=== PATIENT | female | born 1985 | race African-American/Black ===

== ENCOUNTER 2019-02-11 20:01 | Emergency (ER) | payer MEDICAID, OTHER ==
[~2019-02-11] VITALS: Ht 170.2 cm; Wt 94.8 kg
[~2019-02-11 20:01] MED LIST: CIPR500T94 PO; DOCU-109 PO; Ibuprofen PO; NAPR-683 PO; OXYC1TAB15 PO; PHEN-318 PO; PREN-14 PO
[2019-02-11 21:15] VITALS: BP 114/55
--- NOTE | 2019-02-11 21:36 | RAD ---
Transvaginal obstetrical ultrasound 02/11/2019. Reason for exam: Left-sided pain. Vaginal bleeding. History of positive test. History of left side salpingectomy for ectopic . FINDINGS: Uterus is normal in size and shape. Endometrial thickness is mildly prominent at 12 mm. No gestational sac is seen in the uterus. There is no fluid in the endometrial cavity. Both ovaries are demonstrated and show internal blood flow. There is a cyst in the left ovary measuring about 2.5 cm. On the right side, there is a cyst with internal low level echoes measuring about 1.6 cm. No separate adnexal mass or free fluid is seen. IMPRESSION: No demonstrated . Findings are nonspecific. Possible causes include early too small to visualize, spontaneous , or ectopic . There are no secondary findings suggesting ectopic , however. Follow-up ultrasound in one week may be useful. Electronically signed by: Blake Singh Jr., MD (02/11/2019 9:33 PM) [facility]
--- NOTE | 2019-02-11 22:04 | PHYS DOC ---
Past Medical History Past Medical History: Asthma, Other Additional Past Medical Histor: SPONTANEOUS ABORTIONS Past Surgical History: , Other Additional Past Surgical Histo: FALLOPIAN TUBE REMOVAL Alcohol Use: None Drug Use: None Adult General Chief Complaint Chief Complaint: VAGINAL BLEEDING [facility] Patient is a 33 year old AA female who presents to the emergency department with complaints of spotting that occurred earlier today. Patient denies any vaginal bleeding or irregular vaginal discharge at this time. Patient states that she had a positive home test 2 days ago, she is 5, para 2 with a history of an ectopic and miscarriage previously. She states that since 1900 this evening she has felt left lower abdominal pain. She denies any dysuria, hematuria, increased urinary frequency, fever, cough, shortness of breath, vomiting, diarrhea, chest pain, dizziness, headache, chills, or palpitations. Patient states she has had nausea the last few days, she denies any vomiting. The patient's last menstrual cycle was on January 012018, she does not know her estimated due date is yet she has not seen her pediatric dental hygienist or primary care provider. All other ROS is neg unless otherwise noted in HPI. Review of Systems Review of Systems See Above Allergies Allergies Allergies Coded Allergies Type Severity Reaction Last Updated Verified Penicillins Allergy Intermediate Swelling 03/08/13 Yes Physical Exam Physical Exam See Above Constitutional: Well developed, well nourished, no acute distress, non-toxic appearance. [] HENT: Normocephalic, atraumatic, bilateral external ears normal, oropharynx moist, no oral exudates, nose normal. [] Eyes: PERRLA, EOMI, conjunctiva normal, no discharge. [] Neck: Normal range of motion, no stridor. [] Cardiovascular:Heart rate regular rhythm, no murmur [] Lungs & Thorax: Bilateral breath sounds clear to auscultation, Respirations even and unlabored, no retractions, no respiratory distress Abdomen: Bowel sounds normal, soft, LLQ tenderness, no masses, no pulsatile masses. [] Skin: Warm, dry, no erythema, no rash. [] Back: No CVA tenderness. [] Extremities: No cyanosis, ROM intact, no edema. [] Neurologic: Alert and oriented X 3, no focal deficits noted. [] Psychologic: Affect normal, judgement normal, mood normal. [] Current Patient Data Vital Signs Vital Signs Date Time Temp Pulse Resp B/P (MAP) Pulse Ox O2 Delivery O2 Flow Rate FiO2 02/11/19 21:15 82 18 114/55 (74) 98 Room Air 02/11/19 20:13 98.1 98.1 Lab Values Laboratory Tests Test 02/11/19 20:19 02/11/19 20:25 POC Urine HCG, Qualitative Hcg positive (Negative) Maternal Serum HCG Beta Subunit 54278 mIU/mL (0-5) H EKG EKG [] Radiology/Procedures Radiology/Procedures PROCEDURE: PREG 1ST TRIMESTER Transvaginal obstetrical ultrasound 02/11/2019. Reason for exam: Left-sided pain. Vaginal bleeding. History of positive test. History of left side salpingectomy for ectopic . FINDINGS: Uterus is normal in size and shape. Endometrial thickness is mildly prominent at 12 mm. No gestational sac is seen in the uterus. There is no fluid in the endometrial cavity. Both ovaries are demonstrated and show internal blood flow. There is a cyst in the left ovary measuring about 2.5 cm. On the right side, there is a cyst with internal low level echoes measuring about 1.6 cm. No separate adnexal mass or free fluid is seen. IMPRESSION: No demonstrated . Findings are nonspecific. Possible causes include early too small to visualize, spontaneous , or ectopic . There are no secondary findings suggesting ectopic , however. Follow-up ultrasound in one week may be useful. [] Course & Med Decision Making Course & Med Decision Making Pertinent Labs and Imaging studies reviewed. (See chart for details) Patient is a 33-year-old female who presented to the emergency room with complaints of lower left quadrant abdominal pain after having one episode of blood on the tissue with wiping earlier today. Patient reported concern because she took a test 2 days ago and found out it was positive. Patient is 5, para 2, with a history of a previous tubal and one miscarriage. Patient denies any irregular vaginal discharge, or current vaginal bleeding. Her hCG level is 12,930, patient's blood type is O+. Ultrasound revealed: No demonstrated . Findings are nonspecific. Possible causes include early too small to visualize, spontaneous , or ectopic . There are no secondary findings suggesting ectopic , however. Follow-up ultrasound in one week may be useful. She was encouraged follow-up with her primary care provider or Dr. Dias next week for repeat ultrasound and beta hCG level. Recommended pelvic rest until follow-up appointment. Patient verbalized an understanding of home care, medications, follow-up, and return to ED instructions and was in agreement with the plan of care. [] Dragon Disclaimer Dragon Disclaimer This electronic medical record was generated, in whole or in part, using a voice recognition dictation system. Departure Departure Impression: Primary Impression: Abdominal pain of left lower quadrant during , antepartum Referrals: THALIA LONGORIA MD (PCP) Patient Instructions: Abdominal Pain During , [id number] Additional Instructions: You HCG level today was [address]. There was no intrauterine or tubal on the ultrasound. You need to follow up with your OBGyn or Dr. Troy's office next week to have a repeat ultrasound and repeat HCG level. Pelvic rest until follow up appointment. Return to the ER if symptoms worsen. AMILCAR JUSTIN APRN Feb 11, 2019 22:04
== END 2019-02-11 22:15 | disposition home or self-care (01) ==
LOC: ER 20:01
DX: O26.891 Other specified pregnancy related conditions, first trimester (principal); R10.32 Left lower quadrant pain; O26.851 Spotting complicating pregnancy, first trimester; O99.511 Diseases of the respiratory system complicating pregnancy, first trimester; J45.909 Unspecified asthma, uncomplicated; Z88.0 Allergy status to penicillin; Z3A.00 Weeks of gestation of pregnancy not specified
CPT/HCPCS: 36415; 76801; 81025; 84702; 99285-25

== ENCOUNTER → 2019-02-20 | Outpatient (CLI) | payer MEDICAID ==
[~2019-02-20] VITALS: Ht 170.2 cm; Wt 95.3 kg
[~2019-02-20] MED LIST changes: +FERR325T14 PO; +IBUP-1060 PO; +METHOTREXATE SODIUM 50 MG/2 ML VIAL IM ONE
[2019-02-20 14:29] VITALS: BP 134/81
--- NOTE | 2019-02-20 15:24 | NUR ---
HALF THE DOSE GIVEN IN RIGHT DORSOGLUTEAL AND HALF GIVEN IN LEFT DORSOGLUTEAL.
== END | disposition home or self-care (01) ==
LOC: OPS 14:04
PROVIDERS: ATTEND Obstetrics & Gynecology
DX: O00.80 Other ectopic pregnancy without intrauterine pregnancy (principal); J45.909 Unspecified asthma, uncomplicated
CPT/HCPCS: 96372

== ENCOUNTER → 2019-02-20 | Outpatient (CLI) | payer MEDICAID ==
[2019-02-11 21:15] VITALS: BP 114/55
[~2019-02-20] MED LIST changes: -FERR325T14 PO; -IBUP-1060 PO; -METHOTREXATE SODIUM 50 MG/2 ML VIAL IM ONE
--- NOTE | 2019-02-20 12:43 | RAD ---
Examination: OB <14 WKS W/TV History: Abnormal OB ultrasound exam-02/11/2019 Comparison/Correlation: 02/11/2019 OB ultrasound Findings: Transabdominal and transvaginal OB ultrasound was performed. Transvaginal technique was utilized to better assess the adnexal structures. Myometrium is unremarkable. Endometrial thickness is 1.2 cm. Mild heterogeneity of the anterior myometrium noted. Right adnexal gestational sac is present containing a pole measuring 0.81 cm corresponding to 6 weeks 5 day gestation. heart rate is 130 beats minute. Complex right adnexal follicle measuring 1.2 cm diameter is present. Complex left adnexal follicle measuring 2.5 cm diameter is present. Minimal pelvic free fluid. Impression: Right adnexal live ectopic gestation. No intrauterine gestational sac. Complex bilateral ovarian follicles of indeterminate significance. Referring ER physician was informed on 01/24/2019 by the blood bank laboratory technologist performed the exam.. Electronically signed by: Hebert Nair MD (02/20/2019 12:40 PM) [facility]
== END | disposition home or self-care (01) ==
LOC: US 10:56
PROVIDERS: ATTEND Obstetrics & Gynecology
DX: O00.80 Other ectopic pregnancy without intrauterine pregnancy (principal); Z3A.00 Weeks of gestation of pregnancy not specified
CPT/HCPCS: 76801; 76817

== ENCOUNTER 2019-02-27 14:35 | Inpatient (IN) | payer MEDICAID ==
[~2019-02-27] VITALS: Ht 170.2 cm; Wt 95.3 kg
[~2019-02-27 14:35] MED LIST changes: -FERR325T14 PO; -IBUP-1060 PO
[2019-02-27] MEDS ORDERED: MORPHINE SULFATE 10 MG/ML VIAL. IV STA (15:42)
[2019-02-27] MEDS ORDERED: ONDANSETRON PF 4 MG/2 ML VIAL. IV ONE (15:45)
[2019-02-27] MEDS ORDERED: IV NORMAL SALINE 1000ML BAG 1,000 ML IV ONE (15:45)
--- NOTE | 2019-02-27 15:51 | RAD ---
Examination: OB <14 WKS W/TV History: Ectopic treated with methotrexate; abdominal pain has increased Comparison/Correlation: 02/11/2019 and 01/24/2019 first trimester ultrasound exam Findings: Transabdominal and transvaginal pelvic ultrasound exams were performed. Transvaginal technique was placed better assess the adnexal structures. Uterus measures 9.8 cm x 4.9 cm x 5.1 cm. Endometrial thickness of 1.6 cm is present. Myometrium is unremarkable. Small amount of pelvic free fluid is present. No intrauterine gestational sac. Right ovary measures 2.4 cm x 1.7 cm x 2.7 cm. Right adnexal gestational sac is present. pole is present with crown-rump length of 1.56 cm corresponding to 8 weeks 0 day. EDC of 10/08/2010. No heart rate detected. Normal ovarian flow bilaterally. Left ovary measures 3.2 cm x 2.8 cm x 3.2 cm. Left adnexal slightly complex 2.1 cm diameter follicle is present. Impression: Right adnexal ectopic gestation is present with no heart rate detected. Mildly complex left adnexal follicle which may be physiologic is slightly decreased in size. Electronically signed by: Hebert Nair MD (02/27/2019 3:48 PM) [facility]
--- NOTE | 2019-02-27 15:55 | PHYS DOC ---
Past Medical History Past Medical History: Asthma, Other Additional Past Medical Histor: SPONTANEOUS ABORTIONS Past Surgical History: , Other Additional Past Surgical Histo: FALLOPIAN TUBE REMOVAL Alcohol Use: None Drug Use: None Adult General Chief Complaint Chief Complaint: ABDOMINAL PAIN HPI HPI Patient is a 33 year old female who presents from her [facility], Dr. Osuna's office for abdominal pain. The patient was diagnosed with ectopic on February 20 and given methotrexate. Labs taken today at her [facility] office. Her Quant went from 24,569 to 15,443. She states that she is not having pain before been diagnosed the ectopic but then she received the methotrexate and did not pain to today when she started having increased pain. She rates her pain as 8 out of 10 in severity and sharp. Review of Systems Review of Systems Constitutional: Denies fever or chills [] Eyes: Denies change in visual acuity, redness, or eye pain [] HENT: Denies nasal congestion or sore throat [] Respiratory: Denies cough or shortness of breath [] Cardiovascular: No additional information not addressed in HPI [] GI: Reports abdominal pain, nausea, Denies vomiting, bloody stools or diarrhea [] : Denies dysuria or hematuria [] Musculoskeletal: Denies back pain or joint pain [] Integument: Denies rash or skin lesions [] Neurologic: Denies headache, focal weakness or sensory changes [] Complete systems were reviewed and found to be within normal limits, except as documented in this note. Current Medications Current Medications Current Medications Medications (Trade) Dose Ordered Sig/Rebeca Start Time Stop Time Status Last Admin Dose Admin Morphine Sulfate (Morphine Sulfate) 5 mg 1X STAT 02/27/19 15:42 02/27/19 15:47 DC Ondansetron HCl (Zofran) 4 mg 1X ONCE 02/27/19 15:45 02/27/19 15:46 DC Sodium Chloride 1,000 ml @ 1,000 mls/hr 1X ONCE 02/27/19 15:45 02/27/19 16:44 Allergies Allergies Allergies Coded Allergies Type Severity Reaction Last Updated Verified Penicillins Allergy Intermediate Swelling 03/08/13 Yes Physical Exam Physical Exam Constitutional: Well developed, well nourished, no acute distress, non-toxic appearance. [] HENT: Normocephalic, atraumatic, bilateral external ears normal, oropharynx cooper st, no oral exudates, nose normal. [] Eyes: PERRLA, EOMI, conjunctiva normal, no discharge. [] Neck: Normal range of motion, no tenderness, supple, no stridor. [] Cardiovascular:Heart rate regular rhythm, no murmur [] Lungs & Thorax: Bilateral breath sounds clear to auscultation [] Abdomen: Bowel sounds normal, soft, R lower abd tenderness., no masses, no pulsatile masses. [] Skin: Warm, dry, no erythema, no rash. [] Neurologic: Alert and oriented X 3, normal motor function, normal sensory function, no focal deficits noted. [] Psychologic: Affect normal, judgement normal, mood normal. [] EKG EKG [] Radiology/Procedures Radiology/Procedures [][facility] [address] [place] [address] IMAGING REPORT Signed PATIENT: KELECHI TRENT LACCOUNT: [id number] : 1985 LOCATION: ER AGE: 33 SEX: F EXAM STATUS: REG ER ORD. PHYSICIAN: THALIA MUKHERJEE APRN REASON: post methotrexate for ectopic , increased abdominal pain PROCEDURE: OB <14 WKS W/TV Examination: OB <14 WKS W/TV History: Ectopic treated with methotrexate; abdominal pain has increased Comparison/Correlation: 02/11/2019 and 01/24/2019 first trimester ultrasound exam Findings: Transabdominal and transvaginal pelvic ultrasound exams were performed. Transvaginal technique was placed better assess the adnexal structures. Uterus measures 9.8 cm x 4.9 cm x 5.1 cm. Endometrial thickness of 1.6 cm is present. Myometrium is unremarkable. Small amount of pelvic free fluid is present. No intrauterine gestational sac. Right ovary measures 2.4 cm x 1.7 cm x 2.7 cm. Right adnexal gestational sac is present. pole is present with crown-rump length of 1.56 cm corresponding to 8 weeks 0 day. EDC of 10/08/2010. No heart rate detected. Normal ovarian flow bilaterally. Left ovary measures 3.2 cm x 2.8 cm x 3.2 cm. Left adnexal slightly complex 2.1 cm diameter follicle is present. Impression: Right adnexal ectopic gestation is present with no heart rate detected. Mildly complex left adnexal follicle which may be physiologic is slightly decreased in size. Electronically signed by: Hebert Vargas MD (02/27/2019 3:48 PM) [facility] DICTATED and SIGNED BY: HEBERT VARGAS MD DATE: 02/27/19 1548 Course & Med Decision Making Course & Med Decision Making Pertinent Labs and Imaging studies reviewed. (See chart for details) Discussed case with Dr. Osuna who will admit to hospital. Will order supportive care. Dragon Disclaimer Dragon Disclaimer This electronic medical record was generated, in whole or in part, using a voice recognition dictation system. Departure Departure Impression: Primary Impression: Abdominal pain affecting Additional Impression: Ectopic Disposition: 09 ADMITTED INPATIENT (Dr. Osuna) Condition: STABLE Referrals: THALIA LONGORIA MD (PCP) Problem Qualifiers Additional Impression: Ectopic Location of ectopic : ovarian Intrauterine status: without intrauterine Laterality: right Qualified Codes: O00.201 - Right ovarian without intrauterine THALIA MUKHERJEE APRN Feb 27, 2019 15:55
[2019-02-27] MEDS ORDERED: fentaNYL PF VIAL 100 MCG/2 ML VIAL IV PRN (16:00)
[2019-02-27] MEDS ORDERED: ONDANSETRON PF 4 MG/2 ML VIAL. IV PRN (16:00)
[2019-02-27 17:00] VITALS: BP 141/69
[2019-02-27] MEDS: IV NORMAL SALINE 1000ML BAG 1,000 ML IV SCH (17:00)
--- NOTE | 2019-02-27 17:00 | NUR ---
Pt admitted to room 303 per bed from ER. Pt has complaints of abd pain on the right side that started today after eating some pizza. Pt has a recent diagnosis of right ectopic in which she received methotrexate in Dr. Osuna's office on 02-20-19. Pt oriented to room and POC, will notify Dr. Osuna of pts admission.
[2019-02-27] MEDS ORDERED: MORPHINE SULFATE 2 MG/ML VIAL. IV PRN (17:30)
[2019-02-27] MEDS ORDERED: oxyCODONE/APAP 5/325 1 TAB TABLET PO PRN (17:30)
--- NOTE | 2019-02-27 18:09 | PDOC1 ---
History and Physical Date of Admission Date of Admission DATE: 02/27/19 TIME: 18:05 History of Present Illness History of Present Illness Reason for admit: right ectopic s/p MTX, right sided abd pain HPI: 33y who originally presented to the ER on 02/11 with LLQ pain and positive test. Her LMP at that time was 01/01/19. She was found to have a quant of 12,930, but the reported that they could determine a location of the on u/s. The pt was informed at the visit that typically with a quant above 2,000, intrauterine contacts should be seen. The pt is aware that her quant is very high for nothing to be seen. The pt's of unknown location was w/u with a repeat quant. It returned at 13,132 on 02/13. Since the value was stable to only a slight increase the plan was to repeat the u/s a wk out from the original. The u/s on 02/20 revealed a right adnexal gestational sac containing a pole measuring 0.81 cm corresponding to 6 weeks 5 day gestation. heart rate is 130 beats minute. About 2yrs ago the pt was found to have an ectopic . She ultimately presented to the ER with a ruptured ectopic. She had a L/S left partial salpi ngectomy with ectopic removal and adhesion release. Discussed the tx options of medical vs surgical management. Explained that with cardiac activity, a quant >6,500, and a mass >3.5 cm that there was a high chance that MTX would not succeed (32%). The pt understood but she had a strong desire to preserve her remaining tube. The pt was tx with MTX on 02/20. When she followed up in the office on 02/23/19 she was asx and was without pain or cramping. She has noticed some spotting. When she returned to t he office today (02/27/19), the pt presented in to the front end specialist in tears from the sharp pain she was having on her right. She had felt well earlier in the day. Her day #8 quant was drawn around noon. The pt's quant dropped from 24,569 (day #4) to 15,443 (day #8). This was about a 37% drop (more than the desired 15%). Due to the pt pain she was sent to the ER for a stat u/s. The u/s revealed the right adnexal ectopic gestation with no heart rate detected. The infectious waste technician said that she did not see any free fluid on the exam. 12,930 (02/11) -> 13,132 (02/13) -> 17,797 (02/16) -> 24,101 (02/20) -> 24,569 (02/23) -> 15,443 (02/27). 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 Past Surgical History Past Surgical History: Current Problem List Problem List Problems Medical Problems: (1) Abdominal pain affecting Status: Acute (2) Ectopic Status: Acute Current Medications Current Medications Current Medications Ondansetron HCl (Zofran) 4 mg 1X ONCE IV Last administered on 02/27/19at 16:12; Start 02/27/19 at 15:45; Stop 02/27/19 at 15:46; Status DC Sodium Chloride 1,000 ml @ 1,000 mls/hr 1X ONCE IV Last administered on 02/27/19at 16:12; Start 02/27/19 at 15:45; Stop 02/27/19 at 16:44; Status DC Morphine Sulfate (Morphine Sulfate) 5 mg 1X STAT IV Last administered on 02/27/19at 16:11; Start 02/27/19 at 15:42; Stop 02/27/19 at 15:47; Status DC Ondansetron HCl (Zofran) 4 mg PRN Q8HRS PRN IV NAUSEA/VOMITING; Start 02/27/19 at 16:00; Stop 02/28/19 at 15:59 Fentanyl Citrate (Fentanyl 2ml Vial) 50 mcg PRN Q1HR PRN IV PAIN; Start 02/27/19 at 16:00; Stop 02/28/19 at 15:59 Sodium Chloride 1,000 ml @ 100 mls/hr Q10H IV ; Start 02/27/19 at 18:00 Ibuprofen (Motrin) 800 mg PRN Q8HRS PRN PO INFLAMMATION; Start 02/27/19 at 17:30 Morphine Sulfate (Morphine Sulfate) 1 mg PRN Q1HR PRN IV PAIN; Start 02/27/19 at 17:30 Oxycodone/ Acetaminophen (Percocet 5/325) 1 tab PRN Q6HRS PRN PO PAIN; Start 02/27/19 at 17:30 Morphine Sulfate (Morphine Sulfate) 2 mg PRN Q1HR PRN IV PAIN; Start 02/27/19 at 17:45 Oxycodone/ Acetaminophen (Percocet 5/325) 2 tab PRN Q6HRS PRN PO PAIN; Start 02/27/19 at 17:45 Active Scripts Active Reported No Known Medications Prior To Admisstion (Info) Each 1 Each DAILY Allergies Allergies: Coded Allergies: Penicillins (Verified Allergy, Intermediate, Swelling, 03/08/13) Physical Exam General: Alert, Oriented X3, Cooperative, No acute distress HEENT: PERRLA Lungs: Clear to auscultation, Normal air movement Heart: RRR Breasts: Nipples normal Abdomen: Normal bowel sounds, Soft, No hepatosplenomegaly, No masses, Other (tender in RLQ) Extremities: No clubbing, No cyanosis, No edema, Normal pulses, No tenderness/swelling Skin: No rashes, No breakdown, No significant lesion Neuro: Normal gait, Normal speech, Strength at 5/5 X4 ext, Normal tone, Sensation intact, Cranial nerves 3-12 NL, Reflexes 2+ Psych/Mental Status: Mental status NL, Mood NL Vitals Vitals Vital Signs Date Time Temp Pulse Resp B/P (MAP) Pulse Ox O2 Delivery O2 Flow Rate FiO2 02/27/19 17:00 99.0 82 20 141/69 (93) 99 Room Air 99.0 VTE Prophylaxis Ordered VTE Prophylaxis Devices: No VTE Pharmacological Prophylaxi: No Assessment/Plan Assessment/Plan A/P 33y with right ectopic 1.) RLQ pain ddx ruptured ectopic vs pain 2/2 MTX, Mild to moderate abdominal pain of short duration (one to two days) at six to seven days after receiving the MTX is common. The pain may be due to tubal or tubal distention from hematoma formation and can usually be controlled with acetaminophen, due to the pts severe pain a u/s was performed. No hemoperitoneum observed. Due to her severe pain we will admit her for close observation to make sure she remains hemodynamic stable. Hgb 11.1 (previously 11.0 on 02/20) 2.) Right ectopic - s/p MTX on 02/20, baseline labs (Hgb, Plt, Cr, LFTs) all nml, and repeat labs remained nml, 37% decrease b/t day #4 and day #8, pt with new onset right sided pain 3.) cHTN - mild range BP's 4.) H/o C/S x 2 5.) H/o ectopic - h/o L/S left partial salpingectomy 6.) PCN All 7.) Asthma 8.) Contraception - none 9.) Blood type - O pos THALIA PAZ MD Feb 27, 2019 18:09
[2019-02-27] MEDS: IBUPROFEN 400 MG TABLET. PO PRN (18:46)
[2019-02-27 19:36] VITALS: BP 121/64
[2019-02-27] MEDS: MORPHINE SULFATE 2 MG/ML VIAL. IV PRN ×2 (21:12→23:36)
[2019-02-27 22:28] VITALS: BP 125/75
[2019-02-28] VITALS (12 sets, daily range): BP systolic 88–126; BP diastolic 40–83
[2019-02-28] MEDS: IV NORMAL SALINE 1000ML BAG 1,000 ML IV SCH ×3 (00:38→23:07)
[2019-02-28] MEDS: oxyCODONE/APAP 5/325 1 TAB TABLET PO PRN ×3 (00:39→23:11)
[2019-02-28] MEDS: MORPHINE SULFATE 2 MG/ML VIAL. IV PRN ×8 (00:40→23:11)
[2019-02-28 05:08] LABS: BASO % 0 % (0-3); EOS % 1 % (0-3); HEMATOCRIT 31.9 % (36.0-47.0); HEMOGLOBIN 10.6 g/dL (12.0-15.5); LYMPH # 1.4 x10^3/uL (1.0-4.8); LYMPH % 19 % (24-48); MEAN CORPUSCULAR HEMOGLOBIN 28 pg (25-35); MEAN CORPUSCULAR HGB CONC 33 g/dL (31-37); MEAN CORPUSCULAR VOLUME 83 fL (79-100); MONO # 0.4 x10^3/uL (0.0-1.1); MONO % 5 % (0-9); NEUT # 5.8 x10^3/uL (1.8-7.7); NEUT % 75 % (31-73); PLATELET COUNT 281 x10^3/uL (140-400); RED BLOOD COUNT 3.84 x10^6/uL (3.50-5.40); RED CELL DISTRIBUTION WIDTH 15.3 % (11.5-14.5); WHITE BLOOD COUNT 7.7 x10^3/uL (4.0-11.0)
[2019-02-28] MEDS: IBUPROFEN 400 MG TABLET. PO PRN (06:02)
--- NOTE | 2019-02-28 10:19 | PDOC ---
PROGRESS NOTES Subjective Subjective The pt had episodes of severe pain throughout the night. This am she felt bloated. This was similar to the feeling she had with her last ectopic. Reviewed the pts labs with her. Objective Objective Vital Signs Date Time Temp Pulse Resp B/P (MAP) Pulse Ox O2 Delivery O2 Flow Rate FiO2 02/28/19 09:41 18 Room Air 02/28/19 07:45 98.2 97 124/79 (94) 97 98.2 Intake and Output 02/28/19 07:00 Output Total 100 ml Balance -100 ml Output Urine Total 100 ml # Voids 2 Physical Exam Physical Exam CTAB RRR S/diffuse tender, no rebound or guarding/ND No C/C/E Assessment Assessment Problems Medical Problems: (1) Abdominal pain affecting Status: Acute (2) Ectopic Status: Acute A/P 33y with right ectopic , hospital day #2 1.) RLQ pain ddx ruptured ectopic vs pain 2/2 MTX, vital signs remain stable, u/s with only minimal free fluid, Hgb11.0 -> 10.6, will repeat this afternoon, if stable may allow pt to eat 2.) Right ectopic - s/p MTX on 02/20, baseline labs (Hgb, Plt, Cr, L FTs) all nml, and repeat labs remained nml, 37% decrease b/t day #4 and day #8, 15,443 (1/) -> 6,604 (today), pt with new onset right sided pain 3.) cHTN nml to mild range BP's 4.) H/o C/S x 2 5.) H/o ectopic - h/o L/S left partial salpingectomy 6.) PCN All 7.) Asthma 8.) Contraception - none 9.) Blood type - O pos Comment Review of Relevant I have reviewed the following items alem (where applicable) has been applied. Labs Laboratory Tests Test 02/28/19 04:50 White Blood Count 7.7 x10^3/uL (4.0-11.0) Red Blood Count 3.84 x10^6/uL (3.50-5.40) Hemoglobin 10.6 g/dL (12.0-15.5) Hematocrit 31.9 % (36.0-47.0) Mean Corpuscular Volume 83 fL (79-100) Mean Corpuscular Hemoglobin 28 pg (25-35) Mean Corpuscular Hemoglobin Concent 33 g/dL (31-37) Red Cell Distribution Width 15.3 % (11.5-14.5) Platelet Count 281 x10^3/uL (140-400) Neutrophils (%) (Auto) 75 % (31-73) Lymphocytes (%) (Auto) 19 % (24-48) Monocytes (%) (Auto) 5 % (0-9) Eosinophils (%) (Auto) 1 % (0-3) Basophils (%) (Auto) 0 % (0-3) Neutrophils # (Auto) 5.8 x10^3/uL (1.8-7.7) Lymphocytes # (Auto) 1.4 x10^3/uL (1.0-4.8) Monocytes # (Auto) 0.4 x10^3/uL (0.0-1.1) Eosinophils # (Auto) 0.0 x10^3/uL (0.0-0.7) Basophils # (Auto) 0.0 x10^3/uL (0.0-0.2) Maternal Serum HCG Beta Subunit 6604 mIU/mL (0-5) Laboratory Tests Test 02/28/19 04:50 White Blood Count 7.7 x10^3/uL (4.0-11.0) Red Blood Count 3.84 x10^6/uL (3.50-5.40) Hemoglobin 10.6 g/dL (12.0-15.5) Hematocrit 31.9 % (36.0-47.0) Mean Corpuscular Volume 83 fL (79-100) Mean Corpuscular Hemoglobin 28 pg (25-35) Mean Corpuscular Hemoglobin Concent 33 g/dL (31-37) Red Cell Distribution Width 15.3 % (11.5-14.5) Platelet Count 281 x10^3/uL (140-400) Neutrophils (%) (Auto) 75 % (31-73) Lymphocytes (%) (Auto) 19 % (24-48) Monocytes (%) (Auto) 5 % (0-9) Eosinophils (%) (Auto) 1 % (0-3) Basophils (%) (Auto) 0 % (0-3) Neutrophils # (Auto) 5.8 x10^3/uL (1.8-7.7) Lymphocytes # (Auto) 1.4 x10^3/uL (1.0-4.8) Monocytes # (Auto) 0.4 x10^3/uL (0.0-1.1) Eosinophils # (Auto) 0.0 x10^3/uL (0.0-0.7) Basophils # (Auto) 0.0 x10^3/uL (0.0-0.2) Maternal Serum HCG Beta Subunit 6604 mIU/mL (0-5) Medications Current Medications Ondansetron HCl (Zofran) 4 mg 1X ONCE IV Last administered on 02/27/19at 16:12; Start 02/27/19 at 15:45; Stop 02/27/19 at 15:46; Status DC Sodium Chloride 1,000 ml @ 1,000 mls/hr 1X ONCE IV Last administered on 02/27/19at 16:12; Start 02/27/19 at 15:45; Stop 02/27/19 at 16:44; Status DC Morphine Sulfate (Morphine Sulfate) 5 mg 1X STAT IV Last administered on 02/27/19at 16:11; Start 02/27/19 at 15:42; Stop 02/27/19 at 15:47; Status DC Ondansetron HCl (Zofran) 4 mg PRN Q8HRS PRN IV NAUSEA/VOMITING Last administered on 02/27/19at 22:35; Start 02/27/19 at 16:00; Stop 02/28/19 at 15:59 Fentanyl Citrate (Fentanyl 2ml Vial) 50 mcg PRN Q1HR PRN IV PAIN; Start 02/27/19 at 16:00; Stop 02/28/19 at 15:59 Sodium Chloride 1,000 ml @ 100 mls/hr Q10H IV Last administered on 02/28/19at 00:38; Start 02/27/19 at 18:00 Ibuprofen (Motrin) 800 mg PRN Q8HRS PRN PO INFLAMMATION Last administered on 02/28/19at 06:02; Start 02/27/19 at 17:30 Morphine Sulfate (Morphine Sulfate) 1 mg PRN Q1HR PRN IV PAIN; Start 02/27/19 at 17:30 Oxycodone/ Acetaminophen (Percocet 5/325) 1 tab PRN Q6HRS PRN PO PAIN Last administered on 02/27/19at 22:35; Start 02/27/19 at 17:30 Morphine Sulfate (Morphine Sulfate) 2 mg PRN Q1HR PRN IV PAIN Last administered on 02/28/19at 09:41; Start 02/27/19 at 17:45 Oxycodone/ Acetaminophen (Percocet 5/325) 2 tab PRN Q6HRS PRN PO PAIN Last administered on 02/28/19at 06:31; Start 02/27/19 at 17:45 Active Scripts Active Reported No Known Medications Prior To Admisstion (Info) Each 1 Each DAILY Vitals/I & O Vital Sign - Last 24 Hours 02/27/19 02/27/19 02/27/19 02/27/19 15:32 16:51 17:00 19:36 Temp 98.6 99.0 98.8 98.6 99.0 98.8 Pulse 72 84 82 82 Resp 18 16 20 16 B/P (MAP) 141/65 (90) 149/73 (98) 141/69 (93) 121/64 (83) Pulse Ox 98 97 99 97 O2 Delivery Room Air Room Air Room Air Room Air 02/27/19 02/27/19 02/27/19 02/27/19 19:38 21:12 22:00 22:28 Temp 98.3 98.3 Pulse 76 Resp 16 16 16 B/P (MAP) 125/75 (92) Pulse Ox 97 99 O2 Delivery Room Air Room Air Room Air Room Air 02/27/19 02/27/19 02/27/19 02/28/19 22:35 23:35 23:36 00:24 Pulse 80 Resp 16 16 B/P (MAP) 124/72 (89) Pulse Ox 99 O2 Delivery Room Air Room Air Room Air 02/28/19 02/28/19 02/28/19 02/28/19 00:25 00:39 00:40 01:30 Resp 16 16 Pulse Ox 99 O2 Delivery Room Air Room Air Room Air 02/28/19 02/28/19 02/28/19 02/28/19 01:30 02:52 02:56 05:03 Temp 99.0 99.0 Pulse 76 Resp 16 16 B/P (MAP) 109/55 (73) Pulse Ox 99 96 O2 Delivery Room Air Room Air Room Air Room Air 02/28/19 02/28/19 02/28/19 02/28/19 05:33 06:03 06:31 07:45 Temp 98.2 98.2 Pulse 97 Resp 16 16 18 B/P (MAP) 124/79 (94) Pulse Ox 96 96 97 O2 Delivery Room Air Room Air Room Air Room Air 02/28/19 02/28/19 07:49 09:41 Resp 18 18 O2 Delivery Room Air Room Air Intake and Output 02/27/19 02/27/19 02/28/19 15:00 23:00 07:00 Output Total 100 ml Balance -100 ml THALIA PAZ MD Feb 28, 2019 10:19
[2019-02-28 12:04] LABS: HEMATOCRIT 24.8 % (36.0-47.0); HEMOGLOBIN 8.1 g/dL (12.0-15.5)
--- NOTE | 2019-02-28 13:07 | PDOC ---
PROGRESS NOTES Subjective Subjective CTSP after H/H results. Pt with a 2gm drop in Hgb from this morning. Pt states that she feels well. Discussed options of proceeding to surgery at this time vs more conservative measures like repeat u/s and labs. Since the pt feels better than yesterday she would like to proceed in a conservative manner. Objective Objective Vital Signs Date Time Temp Pulse Resp B/P (MAP) Pulse Ox O2 Delivery O2 Flow Rate FiO2 02/28/19 12:30 98.9 80 18 105/54 (71) 100 Room Air 98.9 Intake and Output 02/28/19 07:00 Output Total 100 ml Balance -100 ml Output Urine Total 100 ml # Voids 2 Assessment Assessment Problems Medical Problems: (1) Abdominal pain affecting Status: Acute (2) Ectopic Status: Acute A/P 33y with right ectopic , hospital day #2 1.) RLQ pain ddx ruptured ectopic vs pain 2/2 MTX, vital signs remain stable, Hgb11.0 -> 10.6 -> 8.1, with this drop will repeat u/s to check for free fluid, repeat CBC at 1600, will keep NPO at this time 2.) Right ectopic - s/p MTX on 12, baseline labs (Hgb, Plt, Cr, L FTs) all nml, and repeat labs remained nml, 37% decrease b/t day #4 and day #8, 15,443 (1/6) -> 6,604 (today), pt with new onset right sided pain 3.) cHTN nml to mild range BP's, BP's have slightly lowered over the course of the hospitalization, but pulse has remained nml 4.) H/o C/S x 2 5.) H/o ectopic - h/o L/S left partial salpingectomy 6.) PCN All 7.) Asthma 8.) Contraception - none 9.) Blood type - O pos Comment Review of Relevant I have reviewed the following items alem (where applicable) has been applied. Labs Laboratory Tests Test 02/28/19 04:50 02/28/19 11:55 White Blood Count 7.7 x10^3/uL (4.0-11.0) Red Blood Count 3.84 x10^6/uL (3.50-5.40) Hemoglobin 10.6 g/dL (12.0-15.5) 8.1 g/dL (12.0-15.5) Hematocrit 31.9 % (36.0-47.0) 24.8 % (36.0-47.0) Mean Corpuscular Volume 83 fL (79-100) Mean Corpuscular Hemoglobin 28 pg (25-35) Mean Corpuscular Hemoglobin Concent 33 g/dL (31-37) 33 g/dL (31-37) Red Cell Distribution Width 15.3 % (11.5-14.5) Platelet Count 281 x10^3/uL (140-400) Neutrophils (%) (Auto) 75 % (31-73) Lymphocytes (%) (Auto) 19 % (24-48) Monocytes (%) (Auto) 5 % (0-9) Eosinophils (%) (Auto) 1 % (0-3) Basophils (%) (Auto) 0 % (0-3) Neutrophils # (Auto) 5.8 x10^3/uL (1.8-7.7) Lymphocytes # (Auto) 1.4 x10^3/uL (1.0-4.8) Monocytes # (Auto) 0.4 x10^3/uL (0.0-1.1) Eosinophils # (Auto) 0.0 x10^3/uL (0.0-0.7) Basophils # (Auto) 0.0 x10^3/uL (0.0-0.2) Maternal Serum HCG Beta Subunit 6604 mIU/mL (0-5) Laboratory Tests Test 02/28/19 04:50 02/28/19 11:55 White Blood Count 7.7 x10^3/uL (4.0-11.0) Red Blood Count 3.84 x10^6/uL (3.50-5.40) Hemoglobin 10.6 g/dL (12.0-15.5) 8.1 g/dL (12.0-15.5) Hematocrit 31.9 % (36.0-47.0) 24.8 % (36.0-47.0) Mean Corpuscular Volume 83 fL (79-100) Mean Corpuscular Hemoglobin 28 pg (25-35) Mean Corpuscular Hemoglobin Concent 33 g/dL (31-37) 33 g/dL (31-37) Red Cell Distribution Width 15.3 % (11.5-14.5) Platelet Count 281 x10^3/uL (140-400) Neutrophils (%) (Auto) 75 % (31-73) Lymphocytes (%) (Auto) 19 % (24-48) Monocytes (%) (Auto) 5 % (0-9) Eosinophils (%) (Auto) 1 % (0-3) Basophils (%) (Auto) 0 % (0-3) Neutrophils # (Auto) 5.8 x10^3/uL (1.8-7.7) Lymphocytes # (Auto) 1.4 x10^3/uL (1.0-4.8) Monocytes # (Auto) 0.4 x10^3/uL (0.0-1.1) Eosinophils # (Auto) 0.0 x10^3/uL (0.0-0.7) Basophils # (Auto) 0.0 x10^3/uL (0.0-0.2) Maternal Serum HCG Beta Subunit 6604 mIU/mL (0-5) Medications Current Medications Ondansetron HCl (Zofran) 4 mg 1X ONCE IV Last administered on 02/27/19at 16:12; Start 02/27/19 at 15:45; Stop 02/27/19 at 15:46; Status DC Sodium Chloride 1,000 ml @ 1,000 mls/hr 1X ONCE IV Last administered on 02/27/19at 16:12; Start 02/27/19 at 15:45; Stop 02/27/19 at 16:44; Status DC Morphine Sulfate (Morphine Sulfate) 5 mg 1X STAT IV Last administered on 02/27/19at 16:11; Start 02/27/19 at 15:42; Stop 02/27/19 at 15:47; Status DC Ondansetron HCl (Zofran) 4 mg PRN Q8HRS PRN IV NAUSEA/VOMITING Last administered on 02/27/19at 22:35; Start 02/27/19 at 16:00; Stop 02/28/19 at 15:59 Fentanyl Citrate (Fentanyl 2ml Vial) 50 mcg PRN Q1HR PRN IV PAIN; Start 02/27/19 at 16:00; Stop 02/28/19 at 15:59 Sodium Chloride 1,000 ml @ 100 mls/hr Q10H IV Last administered on 02/28/19at 12:20; Start 02/27/19 at 18:00 Ibuprofen (Motrin) 800 mg PRN Q8HRS PRN PO INFLAMMATION Last administered on 02/28/19at 06:02; Start 02/27/19 at 17:30 Morphine Sulfate (Morphine Sulfate) 1 mg PRN Q1HR PRN IV PAIN; Start 02/27/19 at 17:30 Oxycodone/ Acetaminophen (Percocet 5/325) 1 tab PRN Q6HRS PRN PO PAIN Last administered on 02/27/19at 22:35; Start 02/27/19 at 17:30 Morphine Sulfate (Morphine Sulfate) 2 mg PRN Q1HR PRN IV PAIN Last administered on 02/28/19at 09:41; Start 02/27/19 at 17:45 Oxycodone/ Acetaminophen (Percocet 5/325) 2 tab PRN Q6HRS PRN PO PAIN Last administered on 02/28/19at 06:31; Start 02/27/19 at 17:45 Active Scripts Active Reported No Known Medications Prior To Admisstion (Info) Each 1 Each DAILY Vitals/I & O Vital Sign - Last 24 Hours 02/27/19 02/27/19 02/27/19 02/27/19 15:32 16:51 17:00 19:36 Temp 98.6 99.0 98.8 98.6 99.0 98.8 Pulse 72 84 82 82 Resp 18 16 20 16 B/P (MAP) 141/65 (90) 149/73 (98) 141/69 (93) 121/64 (83) Pulse Ox 98 97 99 97 O2 Delivery Room Air Room Air Room Air Room Air 02/27/19 02/27/19 02/27/19 02/27/19 19:38 21:12 22:00 22:28 Temp 98.3 98.3 Pulse 76 Resp 16 16 16 B/P (MAP) 125/75 (92) Pulse Ox 97 99 O2 Delivery Room Air Room Air Room Air Room Air 02/27/19 02/27/19 02/27/19 02/28/19 22:35 23:35 23:36 00:24 Pulse 80 Resp 16 16 B/P (MAP) 124/72 (89) Pulse Ox 99 O2 Delivery Room Air Room Air Room Air 02/28/19 02/28/19 02/28/19 02/28/19 00:25 00:39 00:40 01:30 Resp 16 16 Pulse Ox 99 O2 Delivery Room Air Room Air Room Air 02/28/19 02/28/19 02/28/19 02/28/19 01:30 02:52 02:56 05:03 Temp 99.0 99.0 Pulse 76 Resp 16 16 B/P (MAP) 109/55 (73) Pulse Ox 99 96 O2 Delivery Room Air Room Air Room Air Room Air 02/28/19 02/28/19 02/28/19 02/28/19 05:33 06:03 06:31 07:45 Temp 98.2 98.2 Pulse 97 Resp 16 16 18 B/P (MAP) 124/79 (94) Pulse Ox 96 96 97 O2 Delivery Room Air Room Air Room Air Room Air 02/28/19 02/28/19 02/28/19 07:49 09:41 12:30 Temp 98.9 98.9 Pulse 80 Resp 18 18 18 B/P (MAP) 105/54 (71) Pulse Ox 100 O2 Delivery Room Air Room Air Room Air Intake and Output 02/27/19 02/27/19 02/28/19 15:00 23:00 07:00 Output Total 100 ml Balance -100 ml THALIA PAZ MD Feb 28, 2019 13:06
--- NOTE | 2019-02-28 15:13 | RAD ---
Study: OB <14 WKS W/TV DATE: 02/28/2019 1:00 PM INDICATION: Possible ruptured ectopic. Hemoglobin decrease. COMPARISON: 02/27/2019. TECHNIQUE: Transabdominal ultrasonography of the pelvis was performed. Color Doppler and duplex were utilized as appropriate. FINDINGS: Redemonstrated right adnexal ectopic gestation without heart tones. A pole is again noted with a measured crown-rump length on today's study at 1.63 cm. Interval increase in volume of complex fluid within the pelvic cul-de-sac compatible with hemorrhage. Avascular thickening of the endometrium is redemonstrated measuring 1.2 cm on the current exam compared to 1.6 cm previously. The uterus itself measures 10 x 6 x 6 cm. The left ovary is not well visualized on this study. IMPRESSION: Progression in volume of blood products seen within the pelvic cul-de-sac most compatible with rupture of the previously diagnosed right adnexal ectopic gestation. As before, no heart tones are detected. FOR INTERNAL CODING PURPOSES RESULT CODE: (C) The significant findings were discussed with Dr. Osuna by telephone on 02/28/2019 at 1510 hours. Electronically signed by: LUCILA SHAVER MD (02/28/2019 3:11 PM) [facility] [place]
[2019-02-28] MEDS ORDERED: IV RINGERS,LACTATED 1000ML 1,000 ML IV SCH (15:27)
[2019-02-28] MEDS ORDERED: PROCHLORPERAZINE 10 MG/2 ML VIAL. IV PRN (15:30)
[2019-02-28] MEDS ORDERED: HYDROmorphone 2 MG/ML VIAL IV PRN (15:30)
[2019-02-28] MEDS ORDERED: fentaNYL PF VIAL 100 MCG/2 ML VIAL IV PRN ×2 (15:30)
[2019-02-28] MEDS ORDERED: MORPHINE SULFATE 2 MG/ML VIAL. IV PRN (15:30)
[2019-02-28] MEDS ORDERED: ONDANSETRON PF 4 MG/2 ML VIAL. IV PRN (15:30)
[2019-02-28] MEDS ORDERED: DEXAMETHASONE SOD PHOS 4 MG/ML VIAL ONE (15:36)
[2019-02-28] MEDS ORDERED: PROPOFOL 20 ML IV ONE (15:36)
[2019-02-28] MEDS ORDERED: ONDANSETRON PF 4 MG/2 ML VIAL. ONE (15:36)
[2019-02-28] MEDS ORDERED: LIDOCAINE 2% PF 5 ML VIAL. ONE (15:37)
[2019-02-28] MEDS ORDERED: MIDAZOLAM HCL/PF 2 MG/2 ML VIAL. ONE (15:37)
[2019-02-28] MEDS ORDERED: ROCURONIUM 50 MG/5 ML VIAL. ONE (15:37)
[2019-02-28] MEDS ORDERED: SUCCINYLCHOLINE 200 MG/10 ML VIAL. ONE (15:37)
[2019-02-28] MEDS ORDERED: fentaNYL PF VIAL 100 MCG/2 ML VIAL ONE ×4 (15:38→18:17)
[2019-02-28] MEDS ORDERED: BUPIVACAINE-EPI 0.25%-1:200000 MPF 30 ML VIAL. ONE (15:41)
[2019-02-28] MEDS ORDERED: ALBUTEROL SULFATE 2.5 MG/3 ML NEBU. NEB ONE (16:00)
[2019-02-28 16:06] LABS: HEMATOCRIT 25.3 % (36.0-47.0); HEMOGLOBIN 8.3 g/dL (12.0-15.5); RED BLOOD COUNT 3.04 x10^6/uL (3.50-5.40); RED CELL DISTRIBUTION WIDTH 15.2 % (11.5-14.5); WHITE BLOOD COUNT 9.2 x10^3/uL (4.0-11.0)
[2019-02-28] MEDS ORDERED: fentaNYL PF VIAL 100 MCG/2 ML VIAL IVP ONE (16:15)
[2019-02-28] MEDS ORDERED: FAMOTIDINE 20 MG/2 ML VIAL ONE (16:26)
[2019-02-28] MEDS ORDERED: PHENYLEPHRINE in 0.9% NACL PF 1 MG/10 ML SYRINGE. IV ONE (16:58)
[2019-02-28] MEDS ORDERED: GLYCOPYRROLATE 1 MG/5 ML VIAL. ONE (17:14)
[2019-02-28] MEDS ORDERED: NEOSTIGMINE METHYLSULFATE 5 MG/5 ML SYRINGE. ONE (17:14)
[2019-02-28] MEDS ORDERED: PROCHLORPERAZINE 10 MG/2 ML VIAL. ONE ×2 (17:31→18:22)
[2019-02-28] MEDS ORDERED: SEVOFLURANE 61 TO 120 MINUTES. IH ONE (17:54)
[2019-02-28] MEDS ORDERED: IV NORMAL SALINE 1000ML BAG 1,000 ML IV SCH (18:07)
[2019-02-28] MEDS ORDERED: DEXTROSE 50% 25 GM / 50ML DISP.SYRIN. IV PRN (18:15)
[2019-02-28] MEDS ORDERED: oxyCODONE/APAP 5/325 1 TAB TABLET PO PRN ×2 (18:15)
[2019-02-28] MEDS ORDERED: NALOXONE 0.4 MG/ML VIAL. IV PRN (18:15)
[2019-02-28] MEDS ORDERED: 0.9 % SODIUM CHLORIDE 10 ML DISP.SYRIN. IV PRN (18:15)
[2019-02-28] MEDS ORDERED: IV DEXTROSE 5% 250 ML BAG. IV PRN (18:15)
--- NOTE | 2019-02-28 18:23 | PDOC4 ---
OPERATIVE NOTE: PreOp Dx: 1.) Right ruptured ectopic 2.) Drop in Hgb, increased free fluid on u/s 3.) cHTN nml to mild range BP's, BP's have slightly lowered over the course of the hospitalization, but pulse has remained nml 4.) H/o C/S x 2 5.) H/o ectopic - h/o L/S left partial salpingectomy 6.) PCN All 7.) Asthma PostOp Dx: same Procedure: L/S right salpingectomy Surgeon: Fransisca Paz Anesteshia: GETA EBL: 100cc (1L of blood in belly) Fluids: 1300 cc UOP: 50cc Findings: right ruptured ectopic , small omental adhesion above right tube Complications: None THALIA PAZ MD Feb 28, 2019 18:22
[2019-03-01] VITALS (10 sets, daily range): BP systolic 93–112; BP diastolic 43–64
[2019-03-01 05:08] LABS: RED BLOOD COUNT 2.32 x10^6/uL (3.50-5.40); RED CELL DISTRIBUTION WIDTH 15.2 % (11.5-14.5); WHITE BLOOD COUNT 8.8 x10^3/uL (4.0-11.0)
[2019-03-01 05:11] LABS: HEMATOCRIT 19.4 % (36.0-47.0); HEMOGLOBIN 6.4 g/dL (12.0-15.5)
[2019-03-01] MEDS: MORPHINE SULFATE 2 MG/ML VIAL. IV PRN (05:35)
[2019-03-01] MEDS: IV NORMAL SALINE 1000ML BAG 1,000 ML IV SCH ×2 (08:02→22:38)
[2019-03-01] MEDS: oxyCODONE/APAP 5/325 1 TAB TABLET PO PRN (09:01)
--- NOTE | 2019-03-01 09:46 | PDOC ---
PROGRESS NOTES Subjective Subjective Pt has some abd pain this am. The pain is mostly located in the midline of the lower quad. The pt has never received a transfusion before and has questions regarding the transfusion and the surgery. Objective Objective Vital Signs Date Time Temp Pulse Resp B/P (MAP) Pulse Ox O2 Delivery O2 Flow Rate FiO2 03/01/19 09:01 Room Air 03/01/19 07:30 97.7 99 20 107/53 (71) 100 97.7 Intake and Output 03/01/19 07:00 Intake Total 2550 ml Output Total 600 ml Balance 1950 ml Intake Oral 750 ml IV Total 1800 ml Output Urine Total 500 ml Estimated Blood Loss 100 ml # Voids 1 Physical Exam Physical Exam CTAB RRR S/tender in lower midline no C/C/E Assessment Assessment Problems Medical Problems: (1) Abdominal pain affecting Status: Acute (2) Ectopic Status: Acute A/P 33y POD #1 s/p right salpingectomy 1.) PO - for ruptured ectopic , initially tx'ed with MTX on 02/20, some pain this am 2.) Anemia - Hgb 8.3 -> 6.4, consistent drop from surgical findings, 1U pRBC received, if pt with appropriate rise after transfusion may d/c home later today 3.) cHTN nml to mild range BP's, BP's have been lower since presumed rupture and the pt's HR has been higher as well, should resolve with transfusion 4.) H/o C/S x 2 5.) H/o ectopic - h/o L/S left partial salpingectomy 6.) PCN All 7.) Asthma 8.) Contraception - none 9.) Blood type - O pos Comment Review of Relevant I have reviewed the following items alem (where applicable) has been applied. Labs Laboratory Tests Test 02/28/19 04:50 02/28/19 11:55 02/28/19 15:45 03/01/19 04:10 White Blood Count 7.7 x10^3/uL (4.0-11.0) 9.2 x10^3/uL (4.0-11.0) 8.8 x10^3/uL (4.0-11.0) Red Blood Count 3.84 x10^6/uL (3.50-5.40) 3.04 x10^6/uL (3.50-5.40) 2.32 x10^6/uL (3.50-5.40) Hemoglobin 10.6 g/dL (12.0-15.5) 8.1 g/dL (12.0-15.5) 8.3 g/dL (12.0-15.5) 6.4 g/dL (12.0-15.5) Hematocrit 31.9 % (36.0-47.0) 24.8 % (36.0-47.0) 25.3 % (36.0-47.0) 19.4 % (36.0-47.0) Mean Corpuscular Volume 83 fL (79-100) 83 fL (79-100) 84 fL (79-100) Mean Corpuscular Hemoglobin 28 pg (25-35) 27 pg (25-35) 28 pg (25-35) Mean Corpuscular Hemoglobin Concent 33 g/dL (31-37) 33 g/dL (31-37) 33 g/dL (31-37) 33 g/dL (31-37) Red Cell Distribution Width 15.3 % (11.5-14.5) 15.2 % (11.5-14.5) 15.2 % (11.5-14.5) Platelet Count 281 x10^3/uL (140-400) 307 x10^3/uL (140-400) 231 x10^3/uL (140-400) Neutrophils (%) (Auto) 75 % (31-73) Lymphocytes (%) (Auto) 19 % (24-48) Monocytes (%) (Auto) 5 % (0-9) Eosinophils (%) (Auto) 1 % (0-3) Basophils (%) (Auto) 0 % (0-3) Neutrophils # (Auto) 5.8 x10^3/uL (1.8-7.7) Lymphocytes # (Auto) 1.4 x10^3/uL (1.0-4.8) Monocytes # (Auto) 0.4 x10^3/uL (0.0-1.1) Eosinophils # (Auto) 0.0 x10^3/uL (0.0-0.7) Basophils # (Auto) 0.0 x10^3/uL (0.0-0.2) Maternal Serum HCG Beta Subunit 6604 mIU/mL (0-5) 3029 mIU/mL (0-5) Laboratory Tests Test 02/28/19 11:55 02/28/19 15:45 03/01/19 04:10 Hemoglobin 8.1 g/dL (12.0-15.5) 8.3 g/dL (12.0-15.5) 6.4 g/dL (12.0-15.5) Hematocrit 24.8 % (36.0-47.0) 25.3 % (36.0-47.0) 19.4 % (36.0-47.0) Mean Corpuscular Hemoglobin Concent 33 g/dL (31-37) 33 g/dL (31-37) 33 g/dL (31-37) White Blood Count 9.2 x10^3/uL (4.0-11.0) 8.8 x10^3/uL (4.0-11.0) Red Blood Count 3.04 x10^6/uL (3.50-5.40) 2.32 x10^6/uL (3.50-5.40) Mean Corpuscular Volume 83 fL (79-100) 84 fL (79-100) Mean Corpuscular Hemoglobin 27 pg (25-35) 28 pg (25-35) Red Cell Distribution Width 15.2 % (11.5-14.5) 15.2 % (11.5-14.5) Platelet Count 307 x10^3/uL (140-400) 231 x10^3/uL (140-400) Maternal Serum HCG Beta Subunit 3029 mIU/mL (0-5) Medications Current Medications Ondansetron HCl (Zofran) 4 mg 1X ONCE IV Last administered on 02/27/19at 16:12; Start 02/27/19 at 15:45; Stop 02/27/19 at 15:46; Status DC Sodium Chloride 1,000 ml @ 1,000 mls/hr 1X ONCE IV Last administered on 02/27/19at 16:12; Start 02/27/19 at 15:45; Stop 02/27/19 at 16:44; Status DC Morphine Sulfate (Morphine Sulfate) 5 mg 1X STAT IV Last administered on 02/27/19at 16:11; Start 02/27/19 at 15:42; Stop 02/27/19 at 15:47; Status DC Ondansetron HCl (Zofran) 4 mg PRN Q8HRS PRN IV NAUSEA/VOMITING Last administered on 02/27/19at 22:35; Start 02/27/19 at 16:00; Stop 02/28/19 at 15:59; Status DC Fentanyl Citrate (Fentanyl 2ml Vial) 50 mcg PRN Q1HR PRN IV PAIN; Start 02/27/19 at 16:00; Stop 02/28/19 at 15:59; Status DC Sodium Chloride 1,000 ml @ 100 mls/hr Q10H IV Last administered on 03/01/19at 08:02; Start 02/27/19 at 18:00 Ibuprofen (Motrin) 800 mg PRN Q8HRS PRN PO INFLAMMATION Last administered on 02/28/19at 06:02; Start 02/27/19 at 17:30 Morphine Sulfate (Morphine Sulfate) 1 mg PRN Q1HR PRN IV MODERATE PAIN; Start 02/27/19 at 17:30 Oxycodone/ Acetaminophen (Percocet 5/325) 1 tab PRN Q6HRS PRN PO MODERATE PAIN Last administered on 02/27/19at 22:35; Start 02/27/19 at 17:30 Morphine Sulfate (Morphine Sulfate) 2 mg PRN Q1HR PRN IV SEVERE PAIN Last administered on 03/01/19at 05:35; Start 02/27/19 at 17:45 Oxycodone/ Acetaminophen (Percocet 5/325) 2 tab PRN Q6HRS PRN PO SEVERE PAIN Last administered on 03/01/19at 09:01; Start 02/27/19 at 17:45 Ondansetron HCl (Zofran) 4 mg PRN Q6HRS PRN IV NAUSEA/VOMITING; Start 02/28/19 at 15:30; Stop 03/01/19 at 15:29 Fentanyl Citrate (Fentanyl 2ml Vial) 25 mcg PRN Q5MIN PRN IV MILD PAIN 1-3; Start 02/28/19 at 15:30; Stop 03/01/19 at 15:29 Fentanyl Citrate (Fentanyl 2ml Vial) 50 mcg PRN Q5MIN PRN IV MODERATE TO SEVERE PAIN; Start 02/28/19 at 15:30; Stop 03/01/19 at 15:29 Morphine Sulfate (Morphine Sulfate) 1 mg PRN Q10MIN PRN IV SEVERE PAIN 7-10; Start 02/28/19 at 15:30; Stop 03/01/19 at 15:29 Ringer's Solution 1,000 ml @ 30 mls/hr Q24H IV ; Start 02/28/19 at 15:27; Stop 03/01/19 at 03:26; Status DC Hydromorphone HCl (Dilaudid) 0.5 mg PRN Q10MIN PRN IV SEV PAIN, Second choice; Start 02/28/19 at 15:30; Stop 03/01/19 at 15:29 Prochlorperazine Edisylate (Compazine) 5 mg PACU PRN PRN IV NAUSEA, MRX1 Last administered on 02/28/19at 18:25; Start 02/28/19 at 15:30; Stop 03/01/19 at 15:29 Dexamethasone Sodium Phosphate (Decadron) 4 mg STK-MED ONCE .ROUTE ; Start 02/28/19 at 15:36; Stop 02/28/19 at 15:37; Status DC Ondansetron HCl (Zofran) 4 mg STK-MED ONCE .ROUTE ; Start 02/28/19 at 15:36; Stop 02/28/19 at 15:37; Status DC Propofol 20 ml @ As Directed STK-MED ONCE IV ; Start 02/28/19 at 15:36; Stop 02/28/19 at 15:37; Status DC Lidocaine HCl (Lidocaine Pf 2% Vial) 5 ml STK-MED ONCE .ROUTE ; Start 02/28/19 at 15:37; Stop 02/28/19 at 15:37; Status DC Rocuronium Ryan (Zemuron) 50 mg STK-MED ONCE .ROUTE ; Start 02/28/19 at 15:37; Stop 02/28/19 at 15:37; Status DC Succinylcholine Chloride (Anectine) 200 mg STK-MED ONCE .ROUTE ; Start 02/28/19 at 15:37; Stop 02/28/19 at 15:37; Status DC Midazolam HCl (Versed) 2 mg STK-MED ONCE .ROUTE ; Start 02/28/19 at 15:37; Stop 02/28/19 at 15:37; Status DC Fentanyl Citrate (Fentanyl 2ml Vial) 100 mcg STK-MED ONCE .ROUTE ; Start 02/28/19 at 15:38; Stop 02/28/19 at 15:38; Status DC Bupivacaine HCl/ Epinephrine Bitart (Sensorcaine-Epi 0.25%-1:555174 Mpf) 30 ml STK-MED ONCE .ROUTE ; Start 02/28/19 at 15:41; Stop 02/28/19 at 15:42; Status DC Albuterol Sulfate (Ventolin Neb Soln) 2.5 mg 1X ONCE NEB Last administered on 02/28/19at 16:07; Start 02/28/19 at 16:00; Stop 02/28/19 at 16:02; Status DC Fentanyl Citrate (Fentanyl 2ml Vial) 100 mcg STK-MED ONCE .ROUTE ; Start 02/28/19 at 16:10; Stop 02/28/19 at 16:10; Status DC Fentanyl Citrate (Fentanyl 2ml Vial) 100 mcg 1X ONCE IVP Last administered on 02/28/19at 16:21; Start 02/28/19 at 16:15; Stop 02/28/19 at 16:17; Status DC Famotidine (Pepcid Vial) 20 mg STK-MED ONCE .ROUTE ; Start 02/28/19 at 16:26; Stop 02/28/19 at 16:26; Status DC Fentanyl Citrate (Fentanyl 2ml Vial) 100 mcg STK-MED ONCE .ROUTE ; Start 02/28/19 at 16:57; Stop 02/28/19 at 16:57; Status DC Phenylephrine HCl (PHENYLEPHRINE in 0.9% NACL PF) 1 mg STK-MED ONCE IV ; Start 02/28/19 at 16:58; Stop 02/28/19 at 16:58; Status DC Neostigmine Ryan (Neostigmine Methylsulfate) 5 mg STK-MED ONCE .ROUTE ; Start 02/28/19 at 17:14; Stop 02/28/19 at 17:15; Status DC Glycopyrrolate (Robinul) 1 mg STK-MED ONCE .ROUTE ; Start 02/28/19 at 17:14; Stop 02/28/19 at 17:15; Status DC Prochlorperazine Edisylate (Compazine) 10 mg STK-MED ONCE .ROUTE ; Start 02/28/19 at 17:31; Stop 02/28/19 at 17:32; Status DC Sevoflurane (Ultane) 60 ml STK-MED ONCE IH ; Start 02/28/19 at 17:54; Stop 02/28/19 at 17:55; Status DC Sodium Chloride (Normal Saline Flush) 3 ml QSHIFT PRN IV AFTER MEDS AND BLOOD DRAWS; Start 02/28/19 at 18:15 Dextrose (Dextrose 50%-Water Syringe) 12.5 gm PRN Q15MIN PRN IV SEE COMMENTS; Start 02/28/19 at 18:15 Dextrose (Iv Dextrose 5%) 250 ml PRN Q15MIN PRN IV SEE COMMENTS; Start 02/28/19 at 18:15 Oxycodone/ Acetaminophen (Percocet 5/325) 1 tab PRN Q4HRS PRN PO MILD PAIN, 1ST CHOICE; Start 02/28/19 at 18:15 Oxycodone/ Acetaminophen (Percocet 5/325) 2 tab PRN Q4HRS PRN PO MODERATE PAIN, SEVERE PAIN; Start 02/28/19 at 18:15 Naloxone HCl (Narcan) 0.4 mg PRN Q2MIN PRN IV SEE INSTRUCTIONS; Start 02/28/19 at 18:15 Sodium Chloride 1,000 ml @ 25 mls/hr Q24H IV ; Start 02/28/19 at 18:07; Stop 03/01/19 at 09:13; Status DC Fentanyl Citrate (Fentanyl 2ml Vial) 100 mcg STK-MED ONCE .ROUTE ; Start 02/28/19 at 18:17; Stop 02/28/19 at 18:17; Status DC Prochlorperazine Edisylate (Compazine) 10 mg STK-MED ONCE .ROUTE ; Start 02/28/19 at 18:22; Stop 02/28/19 at 18:23; Status DC Active Scripts Active Reported No Known Medications Prior To Admisstion (Info) Each 1 Each DAILY Vitals/I & O Vital Sign - Last 24 Hours 02/28/19 02/28/19 02/28/19 02/28/19 09:41 12:30 13:19 15:50 Temp 98.9 99.3 98.9 99.3 Pulse 80 89 Resp 18 18 18 18 B/P (MAP) 105/54 (71) 98/51 (67) Pulse Ox 100 98 O2 Delivery Room Air Room Air Room Air Room Air 02/28/19 02/28/19 02/28/19 02/28/19 15:58 16:21 18:19 18:19 Temp 99.3 97.6 99.3 97.6 Pulse 91 77 Resp 15 15 15 B/P (MAP) 145/68 91/65 Pulse Ox 99 99 100 O2 Delivery Room Air Room Air Room Air Room Air 02/28/19 02/28/19 02/28/19 02/28/19 18:34 18:49 19:00 19:15 Temp 97.6 97.6 97.2 97.6 97.6 97.2 Pulse 88 88 88 93 Resp 15 15 18 B/P (MAP) 101/80 116/86 126/83 (97) 114/56 (75) Pulse Ox 100 98 100 94 O2 Delivery Room Air Room Air Room Air 02/28/19 02/28/19 02/28/19 02/28/19 19:45 20:17 20:47 21:47 Pulse 88 85 87 95 B/P (MAP) 105/51 (69) 107/58 (74) 99/59 (72) 103/59 (74) Pulse Ox 97 96 98 97 02/28/19 02/28/19 02/28/19 02/28/19 22:48 23:11 23:11 23:29 Temp 99.0 99.0 Pulse 97 Resp 16 B/P (MAP) 88/40 (56) Pulse Ox 96 O2 Delivery Room Air Room Air Room Air 03/01/19 03/01/19 03/01/19 03/01/19 00:03 00:11 00:12 03:06 Temp 99.0 99.0 Pulse 92 89 Resp 14 B/P (MAP) 101/50 (67) 93/46 (62) Pulse Ox 97 100 O2 Delivery Room Air Room Air Room Air Room Air 03/01/19 03/01/19 03/01/19 03/01/19 05:35 06:09 07:30 08:00 Temp 97.7 97.7 Pulse 99 Resp 16 20 B/P (MAP) 107/53 (71) Pulse Ox 100 O2 Delivery Room Air Room Air Room Air Room Air 03/01/19 09:01 O2 Delivery Room Air Intake and Output 02/28/19 02/28/19 03/01/19 15:00 23:00 07:00 Intake Total 1800 ml 750 ml Output Total 150 ml 450 ml Balance 1650 ml 300 ml THALIA PAZ MD Mar 01, 2019 09:46
--- NOTE | 2019-03-01 09:59 | OP ---
DATE OF SURGERY: 02/28/2019 PREOPERATIVE DIAGNOSES: 1. Right ruptured ectopic . 2. Chronic hypertension. 3. History of x 2. 4. History of ectopic with left partial salpingectomy. 5. PENICILLIN ALLERGY. 6. Asthma. POSTOPERATIVE DIAGNOSES: 1. Right ruptured ectopic . 2. Chronic hypertension. 3. History of x 2. 4. History of ectopic with left partial salpingectomy. 5. PENICILLIN ALLERGY. 6. Asthma. PROCEDURE: Laparoscopic right salpingectomy. SURGEON: Jae Paz MD ANESTHESIA: General endotracheal intubation. ESTIMATED BLOOD LOSS: About 100 mL with a liter of blood in the belly prior to salpingectomy. FLUIDS: 1300 mL. URINE OUTPUT: 50 mL. FINDINGS: Right ruptured ectopic with small omental adhesion above the right tube. COMPLICATIONS: None. INDICATIONS: The patient is a 33-year-old 5, para 2-0-2-2, who presented to the ER on 02/11 with left lower quadrant pain and a positive test. The location of the could not be determined at that time. The patient was ultimately found to have a right ectopic after additional workup. This was managed with methotrexate with the first dose being on 02/20 when the ectopic was confirmed. Over the course of week, her quantitative hcg dropped to greater than 15% that is desired, but later that afternoon, the patient developed pain and ultimately presented to the office with right lower quadrant pain. The patient underwent an ultrasound, which revealed minimal fluid and a tube to be intact. Due to the patient's pain, she was admitted for observation. The patient remained stable overnight. The following morning, hemoglobin was sent and returned stable, but the patient developed a new sensation of pain that morning, so hemoglobin was ordered at noon, which had a drop from 10.6 to 8.1. Before going to surgery, the patient wanted to make sure that the tube was ruptured, so another ultrasound was performed at this time more amount of free fluid in her pelvis. At that time, the patient was taken to surgery for a salpingectomy. DESCRIPTION OF PROCEDURE: The patient was taken to the operating room where general endotracheal intubation was obtained without difficulty. The patient was prepped and draped in normal sterile fashion. Attention was first turned to the vagina where a sponge stick was placed for manipulation of the uterus. Attention was then turned to the abdomen where a 5 mm skin incision was made in her infraumbilical fold. A 5 mm trocar was then placed directly into the abdomen. Intra-abdominal placement was confirmed with the laparoscope. The abdomen was insufflated to 15 mmHg to visualize the pelvis. There was a significant amount of blood, making it difficult to see anything in the pelvis including the anterior abdominal wall. At that point, a second trocar was then placed on the right, approximately thirds between the ischial spine and the umbilicus. This was first done by making 5 mm skin incision and then directly placing a 5 mm trocar with the laparoscope. At that point, the suction farm field manager was used to clear most of the blood. At that point, the pelvis could be visualized and it was clear that the patient had a large ectopic in her right tube with its medial edge extending close to the cornua of the uterus. Examination of the ectopic revealed the rupture site to be the anterior portion. A third trocar was then placed on the left side approximately two thirds between the ischial spine and the umbilicus by first making a 5 mm skin incision followed by placing the trocar under direct visualization of the laparoscope. At that point, the portion of the tube with ectopic was grasped and serially coagulated and cut with the LigaSure device until the ectopic was free of the tube. Once the tubal segment was freed, it was placed in the anterior cul-de-sac. At that point, the 5 mm trocar in the umbilicus was removed and the 5 mm skin incision was extended to 10 mm trocar to be placed. Once this was done, the laparoscopic bag was then placed through the 10 mm trocar, placed through the trocar, opened, ectopic was placed into the laparoscopic bag, which was then closed and brought through the 10 mm skin incision. The pelvis was then copiously irrigated and suction irrigated. The blood fluid had cleared with the suction farm field manager. Excellent hemostasis was noted. At that point, laparoscopic instruments were removed. The abdomen was deinsufflated. At that point, the trocars were then removed. The 10 mm fascial incision was then closed with 0 Vicryl with 2 [id number] stitches. The skin was then closed with a 3-0 Monocryl in an interrupted manner. The patient tolerated the procedure well. Sponge, laps, and needles were correct x 2. The patient was brought to the recovery room in stable condition. JAE PAZ MD DR: WINTER/viet JOB#: [id number] / [id number] AVIS
[2019-03-01] MEDS: IBUPROFEN 400 MG TABLET. PO PRN (12:56)
[2019-03-01 14:30] LABS: HEMATOCRIT 22.6 % (36.0-47.0); HEMOGLOBIN 7.5 g/dL (12.0-15.5)
--- NOTE | 2019-03-01 14:55 | PDOC ---
PROGRESS NOTES Subjective Subjective Pt states that she feel better after the transfusion. The abd pain has resolved. She is worried about going home too soon after this experience. Objective Objective Vital Signs Date Time Temp Pulse Resp B/P (MAP) Pulse Ox O2 Delivery O2 Flow Rate FiO2 03/01/19 14:00 99.0 85 18 100/57 (71) 99 Room Air 99.0 Intake and Output 03/01/19 07:00 Intake Total 2550 ml Output Total 600 ml Balance 1950 ml Intake Oral 750 ml IV Total 1800 ml Output Urine Total 500 ml Estimated Blood Loss 100 ml # Voids 1 Assessment Assessment Problems Medical Problems: (1) Abdominal pain affecting Status: Acute (2) Ectopic Status: Acute A/P 33y POD #1 s/p right salpingectomy 1.) PO - for ruptured ectopic , initially tx'ed with MTX on 02/20, some pain this am 2.) Anemia - Hgb 8.3 -> 6.4, consistent drop from surgical findings, -> 7.5 (s/p 1U pRBC, appropriate rise), low grade temp with transfusion, will keep overnight to make sure not significant rxn and Hgb stay stable 3.) cHTN nml to mild range BP's, BP's have been lower since presumed rupture and the pt's HR has been higher as well, should resolve with transfusion 4.) H/o C/S x 2 5.) H/o ectopic - h/o L/S left partial salpingectomy 6.) PCN All 7.) Asthma 8.) Contraception - none 9.) Blood type - O pos Comment Review of Relevant I have reviewed the following items alem (where applicable) has been applied. Labs Laboratory Tests Test 02/28/19 04:50 02/28/19 11:55 02/28/19 15:45 03/01/19 04:10 White Blood Count 7.7 x10^3/uL (4.0-11.0) 9.2 x10^3/uL (4.0-11.0) 8.8 x10^3/uL (4.0-11.0) Red Blood Count 3.84 x10^6/uL (3.50-5.40) 3.04 x10^6/uL (3.50-5.40) 2.32 x10^6/uL (3.50-5.40) Hemoglobin 10.6 g/dL (12.0-15.5) 8.1 g/dL (12.0-15.5) 8.3 g/dL (12.0-15.5) 6.4 g/dL (12.0-15.5) Hematocrit 31.9 % (36.0-47.0) 24.8 % (36.0-47.0) 25.3 % (36.0-47.0) 19.4 % (36.0-47.0) Mean Corpuscular Volume 83 fL (79-100) 83 fL (79-100) 84 fL (79-100) Mean Corpuscular Hemoglobin 28 pg (25-35) 27 pg (25-35) 28 pg (25-35) Mean Corpuscular Hemoglobin Concent 33 g/dL (31-37) 33 g/dL (31-37) 33 g/dL (31-37) 33 g/dL (31-37) Red Cell Distribution Width 15.3 % (11.5-14.5) 15.2 % (11.5-14.5) 15.2 % (11.5-14.5) Platelet Count 281 x10^3/uL (140-400) 307 x10^3/uL (140-400) 231 x10^3/uL (140-400) Neutrophils (%) (Auto) 75 % (31-73) Lymphocytes (%) (Auto) 19 % (24-48) Monocytes (%) (Auto) 5 % (0-9) Eosinophils (%) (Auto) 1 % (0-3) Basophils (%) (Auto) 0 % (0-3) Neutrophils # (Auto) 5.8 x10^3/uL (1.8-7.7) Lymphocytes # (Auto) 1.4 x10^3/uL (1.0-4.8) Monocytes # (Auto) 0.4 x10^3/uL (0.0-1.1) Eosinophils # (Auto) 0.0 x10^3/uL (0.0-0.7) Basophils # (Auto) 0.0 x10^3/uL (0.0-0.2) Maternal Serum HCG Beta Subunit 6604 mIU/mL (0-5) 3029 mIU/mL (0-5) Test 03/01/19 14:15 Hemoglobin 7.5 g/dL (12.0-15.5) Hematocrit 22.6 % (36.0-47.0) Mean Corpuscular Hemoglobin Concent 33 g/dL (31-37) Laboratory Tests Test 02/28/19 15:45 03/01/19 04:10 03/01/19 14:15 White Blood Count 9.2 x10^3/uL (4.0-11.0) 8.8 x10^3/uL (4.0-11.0) Red Blood Count 3.04 x10^6/uL (3.50-5.40) 2.32 x10^6/uL (3.50-5.40) Hemoglobin 8.3 g/dL (12.0-15.5) 6.4 g/dL (12.0-15.5) 7.5 g/dL (12.0-15.5) Hematocrit 25.3 % (36.0-47.0) 19.4 % (36.0-47.0) 22.6 % (36.0-47.0) Mean Corpuscular Volume 83 fL (79-100) 84 fL (79-100) Mean Corpuscular Hemoglobin 27 pg (25-35) 28 pg (25-35) Mean Corpuscular Hemoglobin Concent 33 g/dL (31-37) 33 g/dL (31-37) 33 g/dL (31-37) Red Cell Distribution Width 15.2 % (11.5-14.5) 15.2 % (11.5-14.5) Platelet Count 307 x10^3/uL (140-400) 231 x10^3/uL (140-400) Maternal Serum HCG Beta Subunit 3029 mIU/mL (0-5) Medications Current Medications Ondansetron HCl (Zofran) 4 mg 1X ONCE IV Last administered on 02/27/19at 16:12; Start 02/27/19 at 15:45; Stop 02/27/19 at 15:46; Status DC Sodium Chloride 1,000 ml @ 1,000 mls/hr 1X ONCE IV Last administered on 02/27/19at 16:12; Start 02/27/19 at 15:45; Stop 02/27/19 at 16:44; Status DC Morphine Sulfate (Morphine Sulfate) 5 mg 1X STAT IV Last administered on 02/27/19at 16:11; Start 02/27/19 at 15:42; Stop 02/27/19 at 15:47; Status DC Ondansetron HCl (Zofran) 4 mg PRN Q8HRS PRN IV NAUSEA/VOMITING Last adm inistered on 02/27/19at 22:35; Start 02/27/19 at 16:00; Stop 02/28/19 at 15:59; Status DC Fentanyl Citrate (Fentanyl 2ml Vial) 50 mcg PRN Q1HR PRN IV PAIN; Start 02/27/19 at 16:00; Stop 02/28/19 at 15:59; Status DC Sodium Chloride 1,000 ml @ 100 mls/hr Q10H IV Last administered on 03/01/19at 08:02; Start 02/27/19 at 18:00 Ibuprofen (Motrin) 800 mg PRN Q8HRS PRN PO INFLAMMATION Last administered on 03/01/19at 12:56; Start 02/27/19 at 17:30 Morphine Sulfate (Morphine Sulfate) 1 mg PRN Q1HR PRN IV MODERATE PAIN; Start 02/27/19 at 17:30 Oxycodone/ Acetaminophen (Percocet 5/325) 1 tab PRN Q6HRS PRN PO MODERATE PAIN Last administered on 02/27/19at 22:35; Start 02/27/19 at 17:30; Stop 03/01/19 at 14:46; Status DC Morphine Sulfate (Morphine Sulfate) 2 mg PRN Q1HR PRN IV SEVERE PAIN Last administered on 03/01/19at 05:35; Start 02/27/19 at 17:45 Oxycodone/ Acetaminophen (Percocet 5/325) 2 tab PRN Q6HRS PRN PO SEVERE PAIN Last administered on 03/01/19at 09:01; Start 02/27/19 at 17:45; Stop 03/01/19 at 14:46; Status DC Ondansetron HCl (Zofran) 4 mg PRN Q6HRS PRN IV NAUSEA/VOMITING; Start 02/28/19 at 15:30; Stop 03/01/19 at 15:29 Fentanyl Citrate (Fentanyl 2ml Vial) 25 mcg PRN Q5MIN PRN IV MILD PAIN 1-3; Start 02/28/19 at 15:30; Stop 03/01/19 at 15:29 Fentanyl Citrate (Fentanyl 2ml Vial) 50 mcg PRN Q5MIN PRN IV MODERATE TO SEVERE PAIN; Start 02/28/19 at 15:30; Stop 03/01/19 at 15:29 Morphine Sulfate (Morphine Sulfate) 1 mg PRN Q10MIN PRN IV SEVERE PAIN 7-10; Start 02/28/19 at 15:30; Stop 03/01/19 at 15:29 Ringer's Solution 1,000 ml @ 30 mls/hr Q24H IV ; Start 02/28/19 at 15:27; Stop 03/01/19 at 03:26; Status DC Hydromorphone HCl (Dilaudid) 0.5 mg PRN Q10MIN PRN IV SEV PAIN, Second choice; Start 02/28/19 at 15:30; Stop 03/01/19 at 15:29 Prochlorperazine Edisylate (Compazine) 5 mg PACU PRN PRN IV NAUSEA, MRX1 Last administered on 02/28/19at 18:25; Start 02/28/19 at 15:30; Stop 03/01/19 at 15:29 Dexamethasone Sodium Phosphate (Decadron) 4 mg STK-MED ONCE .ROUTE ; Start 02/28/19 at 15:36; Stop 02/28/19 at 15:37; Status DC Ondansetron HCl (Zofran) 4 mg STK-MED ONCE .ROUTE ; Start 02/28/19 at 15:36; Stop 02/28/19 at 15:37; Status DC Propofol 20 ml @ As Directed STK-MED ONCE IV ; Start 02/28/19 at 15:36; Stop 02/28/19 at 15:37; Status DC Lidocaine HCl (Lidocaine Pf 2% Vial) 5 ml STK-MED ONCE .ROUTE ; Start 02/28/19 at 15:37; Stop 02/28/19 at 15:37; Status DC Rocuronium [place] (Zemuron) 50 mg STK-MED ONCE .ROUTE ; Start 02/28/19 at 15:37; Stop 02/28/19 at 15:37; Status DC Succinylcholine Chloride (Anectine) 200 mg STK-MED ONCE .ROUTE ; Start 02/28/19 at 15:37; Stop 02/28/19 at 15:37; Status DC Midazolam HCl (Versed) 2 mg STK-MED ONCE .ROUTE ; Start 02/28/19 at 15:37; Stop 02/28/19 at 15:37; Status DC Fentanyl Citrate (Fentanyl 2ml Vial) 100 mcg STK-MED ONCE .ROUTE ; Start 02/28/19 at 15:38; Stop 02/28/19 at 15:38; Status DC Bupivacaine HCl/ Epinephrine Bitart (Sensorcaine-Epi 0.25%-1:290525 Mpf) 30 ml STK-MED ONCE .ROUTE ; Start 02/28/19 at 15:41; Stop 02/28/19 at 15:42; Status DC Albuterol Sulfate (Ventolin Neb Soln) 2.5 mg 1X ONCE NEB Last administered on 02/28/19at 16:07; Start 02/28/19 at 16:00; Stop 02/28/19 at 16:02; Status DC Fentanyl Citrate (Fentanyl 2ml Vial) 100 mcg STK-MED ONCE .ROUTE ; Start 02/28/19 at 16:10; Stop 02/28/19 at 16:10; Status DC Fentanyl Citrate (Fentanyl 2ml Vial) 100 mcg 1X ONCE IVP Last administered on 02/28/19at 16:21; Start 02/28/19 at 16:15; Stop 02/28/19 at 16:17; Status DC Famotidine (Pepcid Vial) 20 mg STK-MED ONCE .ROUTE ; Start 02/28/19 at 16:26; Stop 02/28/19 at 16:26; Status DC Fentanyl Citrate (Fentanyl 2ml Vial) 100 mcg STK-MED ONCE .ROUTE ; Start 02/28/19 at 16:57; Stop 02/28/19 at 16:57; Status DC Phenylephrine HCl (PHENYLEPHRINE in 0.9% NACL PF) 1 mg STK-MED ONCE IV ; Start 02/28/19 at 16:58; Stop 02/28/19 at 16:58; Status DC Neostigmine [place] (Neostigmine Methylsulfate) 5 mg STK-MED ONCE .ROUTE ; Start 02/28/19 at 17:14; Stop 02/28/19 at 17:15; Status DC Glycopyrrolate (Robinul) 1 mg STK-MED ONCE .ROUTE ; Start 02/28/19 at 17:14; Stop 02/28/19 at 17:15; Status DC Prochlorperazine Edisylate (Compazine) 10 mg STK-MED ONCE .ROUTE ; Start 02/28/19 at 17:31; Stop 02/28/19 at 17:32; Status DC Sevoflurane (Ultane) 60 ml STK-MED ONCE IH ; Start 02/28/19 at 17:54; Stop 02/28/19 at 17:55; Status DC Sodium Chloride (Normal Saline Flush) 3 ml QSHIFT PRN IV AFTER MEDS AND BLOOD DRAWS; Start 02/28/19 at 18:15 Dextrose (Dextrose 50%-Water Syringe) 12.5 gm PRN Q15MIN PRN IV SEE COMMENTS; Start 02/28/19 at 18:15 Dextrose (Iv Dextrose 5%) 250 ml PRN Q15MIN PRN IV SEE COMMENTS; Start 02/28/19 at 18:15 Oxycodone/ Acetaminophen (Percocet 5/325) 1 tab PRN Q4HRS PRN PO MILD PAIN, 1ST CHOICE; Start 02/28/19 at 18:15 Oxycodone/ Acetaminophen (Percocet 5/325) 2 tab PRN Q4HRS PRN PO MODERATE PAIN, SEVERE PAIN; Start 02/28/19 at 18:15 Naloxone HCl (Narcan) 0.4 mg PRN Q2MIN PRN IV SEE INSTRUCTIONS; Start 02/28/19 at 18:15 Sodium Chloride 1,000 ml @ 25 mls/hr Q24H IV ; Start 02/28/19 at 18:07; Stop 03/01/19 at 09:13; Status DC Fentanyl Citrate (Fentanyl 2ml Vial) 100 mcg STK-MED ONCE .ROUTE ; Start 02/28/19 at 18:17; Stop 02/28/19 at 18:17; Status DC Prochlorperazine Edisylate (Compazine) 10 mg STK-MED ONCE .ROUTE ; Start 02/28/19 at 18:22; Stop 02/28/19 at 18:23; Status DC Active Scripts Active Reported No Known Medications Prior To Admisstion (Info) Each 1 Each DAILY Vitals/I & O Vital Sign - Last 24 Hours 1/7/20 1/7/20 1/7/20 1/7/20 15:50 15:58 16:21 18:19 Temp 99.3 99.3 97.6 99.3 99.3 97.6 Pulse 89 91 77 Resp 18 15 15 15 B/P (MAP) 98/51 (67) 145/68 91/65 Pulse Ox 98 99 99 100 O2 Delivery Room Air Room Air Room Air Room Air 02/28/19 02/28/19 02/28/19 02/28/19 18:19 18:34 18:49 19:00 Temp 97.6 97.6 97.2 97.6 97.6 97.2 Pulse 88 88 88 Resp 15 15 18 B/P (MAP) 101/80 116/86 126/83 (97) Pulse Ox 100 98 100 O2 Delivery Room Air Room Air Room Air Room Air 02/28/19 02/28/19 02/28/19 02/28/19 19:15 19:45 20:17 20:47 Pulse 93 88 85 87 B/P (MAP) 114/56 (75) 105/51 (69) 107/58 (74) 99/59 (72) Pulse Ox 94 97 96 98 02/28/19 02/28/19 02/28/19 02/28/19 21:47 22:48 23:11 23:11 Temp 99.0 99.0 Pulse 95 97 Resp 16 B/P (MAP) 103/59 (74) 88/40 (56) Pulse Ox 97 96 O2 Delivery Room Air Room Air 02/28/19 03/01/19 03/01/19 03/01/19 23:29 00:03 00:11 00:12 Pulse 92 B/P (MAP) 101/50 (67) Pulse Ox 97 O2 Delivery Room Air Room Air Room Air Room Air 03/01/19 03/01/19 03/01/19 03/01/19 03:06 05:35 06:09 07:30 Temp 99.0 97.7 99.0 97.7 Pulse 89 99 Resp 14 16 20 B/P (MAP) 93/46 (62) 107/53 (71) Pulse Ox 100 100 O2 Delivery Room Air Room Air Room Air Room Air 03/01/19 03/01/19 03/01/19 03/01/19 08:00 09:01 10:00 10:03 Temp 99.0 99.0 Pulse 99 Resp 20 B/P (MAP) 102/43 O2 Delivery Room Air Room Air Room Air 03/01/19 03/01/19 03/01/19 03/01/19 10:27 11:30 11:30 12:30 Temp 98.1 99.4 99.4 99.1 98.1 99.4 99.4 99.1 Pulse 102 101 101 103 Resp 20 16 16 18 B/P (MAP) 101/51 102/51 102/51 (68) 104/63 Pulse Ox 100 O2 Delivery Room Air 03/01/19 03/01/19 03/01/19 13:00 14:00 14:00 Temp 98.5 99.0 99.0 98.5 99.0 99.0 Pulse 92 85 85 Resp 18 18 18 B/P (MAP) 107/64 100/57 100/57 (71) Pulse Ox 99 O2 Delivery Room Air Intake and Output 02/28/19 02/28/19 03/01/19 15:00 23:00 07:00 Intake Total 1800 ml 750 ml Output Total 150 ml 450 ml Balance 1650 ml 300 ml THALIA PAZ MD Mar 01, 2019 14:55
[2019-03-01] MEDS: FERROUS SULFATE 325 MG TABLET. PO SCH (18:44)
[2019-03-01] MEDS: DOCUSATE SODIUM 100 MG CAPSULE. PO PRN (18:44)
[2019-03-02 00:30] VITALS: BP 120/63
[2019-03-02 04:30] VITALS: BP 129/68
[2019-03-02] MEDS: IBUPROFEN 400 MG TABLET. PO PRN (04:41)
[2019-03-02 04:55] LABS: HEMATOCRIT 22.9 % (36.0-47.0); HEMOGLOBIN 7.6 g/dL (12.0-15.5); RED BLOOD COUNT 2.73 x10^6/uL (3.50-5.40)
[2019-03-02] MEDS: DOCUSATE SODIUM 100 MG CAPSULE. PO PRN (08:38)
[2019-03-02] MEDS: FERROUS SULFATE 325 MG TABLET. PO SCH (08:38)
--- NOTE | 2019-03-02 09:21 | PDOC ---
PROGRESS NOTES Subjective Subjective Pt feels good this am. Denies f/c Objective Objective Vital Signs Date Time Temp Pulse Resp B/P (MAP) Pulse Ox O2 Delivery O2 Flow Rate FiO2 03/02/19 04:30 98.1 93 18 129/68 (88) 99 Room Air 98.1 Intake and Output0 03/02/19 07:00 Intake Total 1860 ml Output Total 202 ml Balance 1658 ml Intake Oral 350 ml IV Total 1000 ml Blood Product 310 ml Blood Product IV Normal Saline Flush 200 ml Output Urine Total 202 ml # Voids 2 Physical Exam Physical Exam Inc port site: C/D/I Assessment Assessment Problems Medical Problems: (1) Abdominal pain affecting Status: Acute (2) Ectopic Status: Acute A/P 33y POD #2 s/p right salpingectomy 1.) PO - for ruptured ectopic , initially tx'ed with MTX on 02/20 2.) Anemia - Hgb 8.3 -> 6.4, consistent drop from surgical findings, -> 7.5 (s/p 1U pRBC), stable this am at 7.6 3.) cHTN nml to mild range BP's, BP's improved since transfusion 4.) H/o C/S x 2 5.) H/o ectopic - h/o L/S left partial salpingectomy 6.) PCN All 7.) Asthma 8.) Contraception - none 9.) Blood type - O pos Comment Review of Relevant I have reviewed the following items alem (where applicable) has been applied. Labs Laboratory Tests Test 02/28/19 11:55 02/28/19 15:45 03/01/19 04:10 03/01/19 14:15 Hemoglobin 8.1 g/dL (12.0-15.5) 8.3 g/dL (12.0-15.5) 6.4 g/dL (12.0-15.5) 7.5 g/dL (12.0-15.5) Hematocrit 24.8 % (36.0-47.0) 25.3 % (36.0-47.0) 19.4 % (36.0-47.0) 22.6 % (36.0-47.0) Mean Corpuscular Hemoglobin Concent 33 g/dL (31-37) 33 g/dL (31-37) 33 g/dL (31-37) 33 g/dL (31-37) White Blood Count 9.2 x10^3/uL (4.0-11.0) 8.8 x10^3/uL (4.0-11.0) Red Blood Count 3.04 x10^6/uL (3.50-5.40) 2.32 x10^6/uL (3.50-5.40) Mean Corpuscular Volume 83 fL (79-100) 84 fL (79-100) Mean Corpuscular Hemoglobin 27 pg (25-35) 28 pg (25-35) Red Cell Distribution Width 15.2 % (11.5-14.5) 15.2 % (11.5-14.5) Platelet Count 307 x10^3/uL (140-400) 231 x10^3/uL (140-400) Maternal Serum HCG Beta Subunit 3029 mIU/mL (0-5) Test 03/02/19 03:55 White Blood Count 6.0 x10^3/uL (4.0-11.0) Red Blood Count 2.73 x10^6/uL (3.50-5.40) Hemoglobin 7.6 g/dL (12.0-15.5) Hematocrit 22.9 % (36.0-47.0) Mean Corpuscular Volume 84 fL (79-100) Mean Corpuscular Hemoglobin 28 pg (25-35) Mean Corpuscular Hemoglobin Concent 33 g/dL (31-37) Red Cell Distribution Width 15.0 % (11.5-14.5) Platelet Count 209 x10^3/uL (140-400) Laboratory Tests Test 03/01/19 14:15 03/02/19 03:55 Hemoglobin 7.5 g/dL (12.0-15.5) 7.6 g/dL (12.0-15.5) Hematocrit 22.6 % (36.0-47.0) 22.9 % (36.0-47.0) Mean Corpuscular Hemoglobin Concent 33 g/dL (31-37) 33 g/dL (31-37) White Blood Count 6.0 x10^3/uL (4.0-11.0) Red Blood Count 2.73 x10^6/uL (3.50-5.40) Mean Corpuscular Volume 84 fL (79-100) Mean Corpuscular Hemoglobin 28 pg (25-35) Red Cell Distribution Width 15.0 % (11.5-14.5) Platelet Count 209 x10^3/uL (140-400) Medications Current Medications Ondansetron HCl (Zofran) 4 mg 1X ONCE IV Last administered on 02/27/19at 16:12; Start 02/27/19 at 15:45; Stop 02/27/19 at 15:46; Status DC Sodium Chloride 1,000 ml @ 1,000 mls/hr 1X ONCE IV Last administered on 0at 16:12; Start 02/27/19 at 15:45; Stop 02/27/19 at 16:44; Status DC Morphine Sulfate (Morphine Sulfate) 5 mg 1X STAT IV Last administered on 02/27/19at 16:11; Start 02/27/19 at 15:42; Stop 02/27/19 at 15:47; Status DC Ondansetron HCl (Zofran) 4 mg PRN Q8HRS PRN IV NAUSEA/VOMITING Last administered on 02/27/19at 22:35; Start 02/27/19 at 16:00; Stop 02/28/19 at 15:59; Status DC Fentanyl Citrate (Fentanyl 2ml Vial) 50 mcg PRN Q1HR PRN IV PAIN; Start 02/27/19 at 16:00; Stop 02/28/19 at 15:59; Status DC Sodium Chloride 1,000 ml @ 100 mls/hr Q10H IV Last administered on 03/01/19at 22:38; Start 02/27/19 at 18:00 Ibuprofen (Motrin) 800 mg PRN Q8HRS PRN PO INFLAMMATION Last administered on 03/02/19at 04:41; Start 02/27/19 at 17:30 Morphine Sulfate (Morphine Sulfate) 1 mg PRN Q1HR PRN IV MODERATE PAIN; Start 02/27/19 at 17:30 Oxycodone/ Acetaminophen (Percocet 5/325) 1 tab PRN Q6HRS PRN PO MODERATE PAIN Last administered on 02/27/19at 22:35; Start 02/27/19 at 17:30; Stop 03/01/19 at 14:46; Status DC Morphine Sulfate (Morphine Sulfate) 2 mg PRN Q1HR PRN IV SEVERE PAIN Last administered on 03/01/19at 05:35; Start 02/27/19 at 17:45 Oxycodone/ Acetaminophen (Percocet 5/325) 2 tab PRN Q6HRS PRN PO SEVERE PAIN Last administered on 03/01/19at 09:01; Start 02/27/19 at 17:45; Stop 03/01/19 at 14:46; Status DC Ondansetron HCl (Zofran) 4 mg PRN Q6HRS PRN IV NAUSEA/VOMITING; Start 02/28/19 at 15:30; Stop 03/01/19 at 15:29; Status DC Fentanyl Citrate (Fentanyl 2ml Vial) 25 mcg PRN Q5MIN PRN IV MILD PAIN 1-3; Start 02/28/19 at 15:30; Stop 03/01/19 at 15:29; Status DC Fentanyl Citrate (Fentanyl 2ml Vial) 50 mcg PRN Q5MIN PRN IV MODERATE TO SEVERE PAIN; Start 02/28/19 at 15:30; Stop 03/01/19 at 15:29; Status DC Morphine Sulfate (Morphine Sulfate) 1 mg PRN Q10MIN PRN IV SEVERE PAIN 7-10; Start 02/28/19 at 15:30; Stop 03/01/19 at 15:29; Status DC Ringer's Solution 1,000 ml @ 30 mls/hr Q24H IV ; Start 02/28/19 at 15:27; Stop 03/01/19 at 03:26; Status DC Hydromorphone HCl (Dilaudid) 0.5 mg PRN Q10MIN PRN IV SEV PAIN, Second choice; Start 02/28/19 at 15:30; Stop 03/01/19 at 15:29; Status DC Prochlorperazine Edisylate (Compazine) 5 mg PACU PRN PRN IV NAUSEA, MRX1 Last administered on 02/28/19at 18:25; Start 02/28/19 at 15:30; Stop 03/01/19 at 15:29; Status DC Dexamethasone Sodium Phosphate (Decadron) 4 mg STK-MED ONCE .ROUTE ; Start 02/28/19 at 15:36; Stop 02/28/19 at 15:37; Status DC Ondansetron HCl (Zofran) 4 mg STK-MED ONCE .ROUTE ; Start 02/28/19 at 15:36; Stop 02/28/19 at 15:37; Status DC Propofol 20 ml @ As Directed STK-MED ONCE IV ; Start 02/28/19 at 15:36; Stop 02/28/19 at 15:37; Status DC Lidocaine HCl (Lidocaine Pf 2% Vial) 5 ml STK-MED ONCE .ROUTE ; Start 02/28/19 at 15:37; Stop 02/28/19 at 15:37; Status DC Rocuronium [place] (Zemuron) 50 mg STK-MED ONCE .ROUTE ; Start 02/28/19 at 15:37; Stop 02/28/19 at 15:37; Status DC Succinylcholine Chloride (Anectine) 200 mg STK-MED ONCE .ROUTE ; Start 02/28/19 at 15:37; Stop 02/28/19 at 15:37; Status DC Midazolam HCl (Versed) 2 mg STK-MED ONCE .ROUTE ; Start 02/28/19 at 15:37; Stop 02/28/19 at 15:37; Status DC Fentanyl Citrate (Fentanyl 2ml Vial) 100 mcg STK-MED ONCE .ROUTE ; Start 02/28/19 at 15:38; Stop 02/28/19 at 15:38; Status DC Bupivacaine HCl/ Epinephrine Bitart (Sensorcaine-Epi 0.25%-1:541204 Mpf) 30 ml STK-MED ONCE .ROUTE ; Start 02/28/19 at 15:41; Stop 02/28/19 at 15:42; Status DC Albuterol Sulfate (Ventolin Neb Soln) 2.5 mg 1X ONCE NEB Last administered on 02/28/19at 16:07; Start 02/28/19 at 16:00; Stop 02/28/19 at 16:02; Status DC Fentanyl Citrate (Fentanyl 2ml Vial) 100 mcg STK-MED ONCE .ROUTE ; Start 02/28/19 at 16:10; Stop 02/28/19 at 16:10; Status DC Fentanyl Citrate (Fentanyl 2ml Vial) 100 mcg 1X ONCE IVP Last administered on 02/28/19at 16:21; Start 02/28/19 at 16:15; Stop 02/28/19 at 16:17; Status DC Famotidine (Pepcid Vial) 20 mg STK-MED ONCE .ROUTE ; Start 02/28/19 at 16:26; Stop 02/28/19 at 16:26; Status DC Fentanyl Citrate (Fentanyl 2ml Vial) 100 mcg STK-MED ONCE .ROUTE ; Start 02/28/19 at 16:57; Stop 02/28/19 at 16:57; Status DC Phenylephrine HCl (PHENYLEPHRINE in 0.9% NACL PF) 1 mg STK-MED ONCE IV ; Start 02/28/19 at 16:58; Stop 02/28/19 at 16:58; Status DC Neostigmine [place] (Neostigmine Methylsulfate) 5 mg STK-MED ONCE .ROUTE ; Start 02/28/19 at 17:14; Stop 02/28/19 at 17:15; Status DC Glycopyrrolate (Robinul) 1 mg STK-MED ONCE .ROUTE ; Start 02/28/19 at 17:14; Stop 02/28/19 at 17:15; Status DC Prochlorperazine Edisylate (Compazine) 10 mg STK-MED ONCE .ROUTE ; Start 02/28/19 at 17:31; Stop 02/28/19 at 17:32; Status DC Sevoflurane (Ultane) 60 ml STK-MED ONCE IH ; Start 02/28/19 at 17:54; Stop 02/28/19 at 17:55; Status DC Sodium Chloride (Normal Saline Flush) 3 ml QSHIFT PRN IV AFTER MEDS AND BLOOD DRAWS; Start 02/28/19 at 18:15 Dextrose (Dextrose 50%-Water Syringe) 12.5 gm PRN Q15MIN PRN IV SEE COMMENTS; Start 02/28/19 at 18:15 Dextrose (Iv Dextrose 5%) 250 ml PRN Q15MIN PRN IV SEE COMMENTS; Start 02/28/19 at 18:15 Oxycodone/ Acetaminophen (Percocet 5/325) 1 tab PRN Q4HRS PRN PO MILD PAIN, 1ST CHOICE; Start 02/28/19 at 18:15 Oxycodone/ Acetaminophen (Percocet 5/325) 2 tab PRN Q4HRS PRN PO MODERATE PAIN, SEVERE PAIN Last administered on 03/01/19at 18:44; Start 02/28/19 at 18:15 Naloxone HCl (Narcan) 0.4 mg PRN Q2MIN PRN IV SEE INSTRUCTIONS; Start 02/28/19 at 18:15 Sodium Chloride 1,000 ml @ 25 mls/hr Q24H IV ; Start 02/28/19 at 18:07; Stop 03/01/19 at 09:13; Status DC Fentanyl Citrate (Fentanyl 2ml Vial) 100 mcg STK-MED ONCE .ROUTE ; Start 02/28/19 at 18:17; Stop 02/28/19 at 18:17; Status DC Prochlorperazine Edisylate (Compazine) 10 mg STK-MED ONCE .ROUTE ; Start 02/28/19 at 18:22; Stop 02/28/19 at 18:23; Status DC Ferrous Sulfate (Feosol) 325 mg BIDWMEALS PO Last administered on 03/02/19at 08:38; Start 03/01/19 at 17:00 Docusate Sodium (Colace) 100 mg PRN BID PRN PO CONSTIPATION Last administered on 03/02/19at 08:38; Start 03/01/19 at 16:00 Active Scripts Active Reported No Known Medications Prior To Admisstion (Info) Each 1 Each DAILY Vitals/I & O Vital Sign - Last 24 Hours 03/01/19 03/01/19 03/01/19 03/01/19 10:00 10:03 10:27 11:30 Temp 99.0 98.1 99.4 99.0 98.1 99.4 Pulse 99 102 101 Resp 20 20 16 B/P (MAP) 102/43 101/51 102/51 O2 Delivery Room Air 03/01/19 03/01/19 03/01/19 03/01/19 11:30 12:30 13:00 14:00 Temp 99.4 99.1 98.5 99.0 99.4 99.1 98.5 99.0 Pulse 101 103 92 85 Resp 16 18 18 18 B/P (MAP) 102/51 (68) 104/63 107/64 100/57 Pulse Ox 100 O2 Delivery Room Air 03/01/19 03/01/19 03/01/19 03/01/19 14:00 18:44 19:30 20:00 Temp 99.0 99.2 99.0 99.2 Pulse 85 106 Resp 18 18 18 B/P (MAP) 100/57 (71) 112/59 (76) Pulse Ox 99 99 O2 Delivery Room Air Room Air Room Air Room Air 03/01/19 03/02/19 03/02/19 20:00 00:30 04:30 Temp 98.3 98.1 98.3 98.1 Pulse 92 93 Resp 18 18 B/P (MAP) 120/63 (82) 129/68 (88) Pulse Ox 99 99 O2 Delivery Room Air Room Air Room Air Intake and Output 03/01/19 03/01/19 03/02/19 15:00 23:00 07:00 Intake Total 1810 ml 50 ml Output Total 200 ml 2 ml Balance 1810 ml -200 ml 48 ml THALIA PAZ MD Mar 02, 2019 09:21
[2019-03-02] MEDS ORDERED: FERR325T14 PO (09:32)
[2019-03-02] MEDS ORDERED: IBUP-1060 PO (09:35)
[2019-03-02] MEDS ORDERED: OXYC1TAB15 PO (09:35)
[2019-03-02 09:45] VITALS: BP 136/83
--- NOTE | 2019-03-02 10:10 | NUR ---
Discharge and follow up instructions along with Rx given to pt. Pt denied any complaints or questions at time of D/C. Ambulated pt out hospital where she had a ride waiting in the ER area.
--- NOTE | 2019-03-02 12:26 | DS ---
DATE OF DISCHARGE: 03/02/2019 ADMISSION DIAGNOSES: 1. Right ectopic . 2. Right lower quadrant pain. 3. Chronic hypertension. 4. History of x 2. 5. History of ectopic with history of a laparoscopic left partial salpingectomy. 6. PENICILLIN ALLERGY. 7. Asthma. 8. O positive blood type. DISCHARGE DIAGNOSES: 1. Right ectopic . 2. Right lower quadrant pain. 3. Chronic hypertension. 4. History of x 2. 5. History of ectopic with history of a laparoscopic left partial salpingectomy. 6. PENICILLIN ALLERGY. 7. Asthma. 8. O positive blood type. 9. Ruptured ectopic . PROCEDURES: 1. Laparoscopic right salpingectomy. 2. Blood transfusion. BRIEF HOSPITAL COURSE: The patient is a 33-year-old 5, para 2-0-2-2, who presented to the ER on 02/11/2019 with right lower quadrant pain and positive test. At that time, location of her could not be determined. During an outpatient workup the patient ultimately was found to have right ectopic . The patient was managed medically with methotrexate with her first dose being on 02/20/2019. After a week's time, the patient's quantitative hcg had the desired greater than 15% drop. But later that afternoon, the patient developed severe abdominal pain and was sent to the ER for evaluation. The patient underwent an ultrasound, which revealed minimal fluid at that time with an intact tube. The patient was admitted for observation and remained stable overnight. The following morning, her hemoglobin remained stable compared to the previous day, but the patient reported a new sensation of pain, so repeat hemoglobin was drawn that afternoon, the patient had a drop from 10.6 to 8.1 on her hemoglobin. A repeat ultrasound was performed with more free fluid seen in the pelvis. At that time, the patient was taken to surgery. See operative note for full detail. Postoperatively, the patient was found to have a postoperative hemoglobin of 6.4. This was pretty consistent with her intraoperative findings. The patient was given 1 unit of packed red blood cells and raised to 7.5. The patient did have a low-grade temperature during the transfusion and some tachycardia, so the patient was held overnight to ensure that she did not develop any signs of a postop fever and to make sure that her hemoglobin remained stable. The following morning, the patient's hemoglobin was 7.6. The patient was without pain, was meeting all discharge criteria, so she was subsequently discharged home. DISCHARGE INSTRUCTIONS: The patient was told not to lift anything greater than 20 pounds, have pelvic rest for 2 weeks, not to drive on narcotics. CALL IF: The patient was to call if she had fevers, chills, nausea, vomiting, abdominal pain or any additional questions or concerns. FOLLOWUP APPOINTMENT: The patient was to follow up for an incision check on 03/08/2019 at 3:00 p.m. for an incision check. DISCHARGE MEDICATIONS: The patient was given a prescription for Percocet 5 mg 10 pills, Motrin 800 mg 30 pills and ferrous sulfate 325 mg 30 pills. THALIA PAZ MD DR: WINTER/viet JOB#: [id number] / [id number] AVIS
--- NOTE | 2019-03-02 17:06 | PATHOLOGY ---
[facility] Accession Number: [id number] . 01 Material submitted: . fallopian tube - RIGHT FALLOPIAN TUBE WITH ECTOPIC . Modifiers: right . 01 Clinical history: . Abdominal pain, ectopic . 02 Diagnosis: Fallopian tube, laparoscopic right salpingectomy: - Ectopic tubal , ruptured. - Hematosalpinx. - Focal chronic healed salpingitis. . (JPM:candido; 03/02/2019) QMS 03/02/2019 1533 Local . 02 Electronically signed: . Thien Arthur MD, Pathologist NPI- [id number] . 01 Gross description: . The specimen is received in formalin, labeled "Julieta Hathaway, right fallopian tube with ectopic " and consists of a ruptured and markedly dilated fallopian tube segment measuring 5.5 cm in length and up to 2.5 cm in diameter. The rupture measures 3.5 cm with protruding clot. Sectioning reveals a pinpoint to dilated lumen containing blood clot and possible spongy brown villous tissue. Senior Project Engineer sections are submitted in A1-A5. (SDY; 03/01/2019) SYU/SYU 03/01/2019 1704 Local . 02 Pathologist provided ICD-10: O00.90, N83.6, N70.11 . 02 CPT . 452039 Specimen Comment: A courtesy copy of this report has been sent to [phone], [phone] Specimen Comment: [id number] Specimen Comment: Report sent to / DR LONGORIA Performed at: [address], [place], [place] [id number] MD Finesse Whitlock MD Phone: [phone] Performed at: 02 [facility] [address] [place], [place] [id number] MD Thien Arthur MD Phone: [phone]
== END 2019-03-02 10:10 | disposition home or self-care (01) | DRG 818 ==
LOC: ER 14:35 → 3 NORTH 15:49
PROVIDERS: ADMIT Obstetrics & Gynecology; ATTEND Obstetrics & Gynecology
PROC: 10T24ZZ Resection of Products of Conception, Ectopic, Percutaneous Endoscopic Approach (ICD-10-PCS; 2019-02-28)
PROC: 0UB54ZZ Excision of Right Fallopian Tube, Percutaneous Endoscopic Approach (ICD-10-PCS; principal; 2019-02-28 16:00)
PROC: 30233N1 Transfusion of Nonautologous Red Blood Cells into Peripheral Vein, Percutaneous Approach (ICD-10-PCS; 2019-03-01)
DX: O00.90 Unspecified ectopic pregnancy without intrauterine pregnancy (principal); O16.1 Unspecified maternal hypertension, first trimester; O99.511 Diseases of the respiratory system complicating pregnancy, first trimester; J45.909 Unspecified asthma, uncomplicated; O99.011 Anemia complicating pregnancy, first trimester; D64.9 Anemia, unspecified; Z88.0 Allergy status to penicillin
CPT/HCPCS: 36415; 76801; 76817; 84702; 85014; 85018; 85025; 85027; 86850; 86900; 86901; 86920; 88305; 96361; 96365; 96375; A7015; J0330; J0780; J1100; J2001; J2250; J2270; J2370; J2405; J2704; J2710; J3010; J3490; J7030; J7613; P9016; 99285-25; G0378

== ENCOUNTER → 2019-02-27 | Outpatient (CLI) | payer MEDICAID ==
[2019-02-20 14:29] VITALS: BP 134/81
[~2019-02-27] MED LIST changes: +FERR325T14 PO; +IBUP-1060 PO
[2019-02-27 11:51] LABS: BASO % 1 % (0-3); EOS # 0.1 x10^3/uL (0.0-0.7); EOS % 2 % (0-3); HEMATOCRIT 34.1 % (36.0-47.0); HEMOGLOBIN 11.1 g/dL (12.0-15.5); LYMPH # 1.6 x10^3/uL (1.0-4.8); LYMPH % 28 % (24-48); MEAN CORPUSCULAR HEMOGLOBIN 27 pg (25-35); MEAN CORPUSCULAR HGB CONC 33 g/dL (31-37); MEAN CORPUSCULAR VOLUME 82 fL (79-100); MONO # 0.5 x10^3/uL (0.0-1.1); MONO % 8 % (0-9); NEUT # 3.5 x10^3/uL (1.8-7.7); NEUT % 62 % (31-73); PLATELET COUNT 298 x10^3/uL (140-400); RED BLOOD COUNT 4.16 x10^6/uL (3.50-5.40); RED CELL DISTRIBUTION WIDTH 15.2 % (11.5-14.5); WHITE BLOOD COUNT 5.7 x10^3/uL (4.0-11.0)
[2019-02-27 12:14] LABS: ALBUMIN 3.1 g/dL (3.4-5.0); ALBUMIN/GLOBULIN RATIO 0.9 (1.0-1.7); CALCIUM 8.6 mg/dL (8.5-10.1); CREATININE 0.8 mg/dL (0.6-1.0); TOTAL BILIRUBIN 0.7 mg/dL (0.2-1.0); TOTAL PROTEIN 6.7 g/dL (6.4-8.2)
== END | disposition home or self-care (01) ==
LOC: LAB 11:20
PROVIDERS: ATTEND Obstetrics & Gynecology
DX: O00.90 Unspecified ectopic pregnancy without intrauterine pregnancy (principal)
CPT/HCPCS: 36415; 80053; 84702; 85025

== ENCOUNTER 2020-10-10 17:10 | Emergency (ER) | payer MEDICAID ==
[~2020-10-10] VITALS: Ht 170.2 cm; Wt 100.0 kg
[~2020-10-10 17:10] MED LIST changes: +FERR325T14 PO; +IBUP-1060 PO
[2020-10-10 17:35] VITALS: BP 137/78
--- NOTE | 2020-10-10 17:44 | PHYS DOC ---
Past Medical History Past Medical History: Asthma, Other Additional Past Medical Histor: SPONTANEOUS ABORTIONS Past Surgical History: , Other Additional Past Surgical Histo: FALLOPIAN TUBE REMOVAL D/T ECTOPIC 2015 Smoking Status: Never Smoker Alcohol Use: None Drug Use: None General Adult EDM: Chief Complaint: INSECT BITE HPI: HPI: Patient is a 34 year old female who presents to the ED today complaining of insect bite to the right hand. Patient states she was braiding somebody's hair noted a couple bruises on the right hand. She is right-handed. She is worried this could be bedbugs or spiders. Patient denies any fever. Denies any anaphylactic reaction symptoms. The bites occurred yesterday. Review of Systems: Review of Systems: Constitutional: Denies fever or chills. [] Musculoskeletal: Denies back pain or joint pain. [] Integument: Insect bite to the right hand Neurologic: Denies headache, focal weakness or sensory changes. [] Psychiatric: Denies depression or anxiety. [] Heart Score: C/O Chest Pain: N/A Risk Factors: Risk Factors: DM, Current or recent (<one month) smoker, HTN, HLP, family history of CAD, obesity. Risk Scores: Score 0 - 3: 2.5% MACE over next 6 weeks - Discharge Home Score 4 - 6: 20.3% MACE over next 6 weeks - Admit for Clinical Observation Score 7 - 10: 72.7% MACE over next 6 weeks - Early Invasive Strategies Allergies: Allergies: Allergies Coded Allergies Type Severity Reaction Last Updated Verified Penicillins Allergy Intermediate Swelling 03/08/13 Yes Physical Exam: PE: Constitutional: Well developed, well nourished, no acute distress, non-toxic appearance. [] Skin: Right dorsal hand between the right index finger and thumb webspace with 3 tiny puncture wounds, no signs of infection to this area. Full range of motion to the right hand and fingers. +2 right radial pulse. Cap refill less than 2 seconds of right fingers. Back: No tenderness, no CVA tenderness. [] Extremities: No tenderness, no cyanosis, no clubbing, ROM intact, no edema. [] Neurologic: Alert and oriented X 3, normal motor function, normal sensory function, no focal deficits noted. [] Psychologic: Affect normal, judgement normal, mood normal. [] EKG: EKG: [] Radiology/Procedures: Radiology/Procedures: [] Course & Med Decision Making: Course & Med Decision Making Pertinent Labs and Imaging studies reviewed. (See chart for details) This is a 34-year-old female patient presenting to the ED today with insect bites to the right hand. She only has 3 puncture wounds to the right hand suspicious of an insect bite. They are not infected. Tetanus up-to-date. Discharge to home. Hydrocortisone cream recommended to the area. Dragon Disclaimer: Dragon Disclaimer: This electronic medical record was generated, in whole or in part, using a voice recognition dictation system. Departure Departure Impression: Primary Impression: Insect bite Qualified Codes: S60.561A - Insect bite (nonvenomous) of right hand, initial encounter; W57.XXXA - Bitten or stung by nonvenomous insect and other nonvenomous arthropods, initial encounter Disposition: HOME / SELF CARE / HOMELESS Condition: STABLE Referrals: NO PCP (PCP) Patient Instructions: Insect Bite, [id number] Additional Instructions: You have insect bites to the right hand. Please apply [id number] hydrocortisone cream to the area. You can take Tylenol or Motrin for pain or fever. Keep the areas clean and dry. Monitor the areas for any signs of infection including but not limited to increased redness, warmth, yellow drainage from the area and return to the ED if they occur. ALINA GREEN APRN Oct 10, 2020 17:44
== END 2020-10-10 18:07 | disposition home or self-care (01) ==
LOC: ER 17:10
DX: S60.561A Insect bite (nonvenomous) of right hand, initial encounter (principal); J45.909 Unspecified asthma, uncomplicated; Z88.0 Allergy status to penicillin; Y92.89 Other specified places as the place of occurrence of the external cause; W57.XXXA Bitten or stung by nonvenomous insect and other nonvenomous arthropods, initial encounter; Y93.89 Activity, other specified; Y99.8 Other external cause status
CPT/HCPCS: 99282